=== PATIENT | female | born 1960 | race Caucasian/White ===

== ENCOUNTER 2019-03-09 12:51 | Emergency (ER) | payer OTHER, SELFPAY ==
[2019-03-09 13:22] VITALS: BP 158/92; PULSE 55; RESP 20; TEMP 36.5; O2SAT 100
--- NOTE | 2019-03-09 13:22 | ED.GIBLEED ---
HPI - GI Bleed General Chief complaint: GI Bleed Stated complaint: BLACK STOOL Time Seen by Provider: 03/09/19 13:08 Source: patient and RN notes reviewed Mode of arrival: ambulatory Limitations: no limitations History of Present Illness HPI Narrative: Pt is a 59 y/o female who presents to the ED with c/o dark black stools starting earlier today. She notes that she fell and injured her rt ribs 2 days ago. Pt states that she has had bruising and pain on her rt lower ribs ever since the fall. She notes that earlier today she noticed her stools were dark black in color. Pt states that she was seen at an urgent care facility for her symptoms early this afternoon, and notes that she was advised to come to the ED due to a possible GI bleed. She currently reports a decreased appetite, but denies any ABD pain or vomiting. Pt notes that she has been taking Aleve for her rib pain. She states that she isn't taking any blood thinners. MD complaint: melena Context: other (recent fall) Associated symptoms: loss of appetite and other (rt lower rib pain; bruising along rt lower ribs) Related Data Home Medications Medication Instructions Recorded Confirmed Vitamin D3 Complete 03/09/19 lisinopril 03/09/19 loratadine mg 03/09/19 multivitamin cap 03/09/19 omeprazole 03/09/19 triamterene-hydrochlorothiazid tablet 03/09/19 Allergies Allergy/AdvReac Type Severity Reaction Status Date / Time latex Allergy Intermediate RASH, Verified 03/09/19 13:19 ITCHING Review of Systems Review of Systems: Narrative: CONSTITUTIONAL: Denies fever, chills, or sweats. Reports decreased appetite. GASTROINTESTINAL: Denies abdominal pain, nausea, vomiting, or diarrhea. Reports dark black stools. GENITOURINARY: Denies dysuria or hematuria. SKIN: Denies rash or itching. Reports bruising across rt lower ribs. MUSCULOSKELETAL: Denies back pain, joint pain, or myalgia. Reports rt lower rib pain. NEUROLOGIC: Denies headache, numbness, or weakness. All systems reviewed & are unremarkable except as noted in HPI and below PMFSH Past Medical History Medical History Anemia Arthritis GERD (gastroesophageal reflux disease) HTN (hypertension) Ovarian cyst Surgical History Surgical History History of right knee joint replacement Hx of appendectomy Hx of cholecystectomy Hx of oophorectomy Hx of tonsillectomy Social History Social History Smoking status: Never smoker Gender identity (if verbalized by the patient): Female Comments PCP is FRANCHESCA Gomez. Exam Narrative: Exam Narrative: GENERAL: Well-appearing, well-nourished, and in no acute distress. HEAD: Normocephalic, atraumatic. EYES: PERRLA and EOMI. ENT: Nares clear, no rhinorrhea or epistaxis. Mucous membranes moist. NECK: Supple. CHEST: Clear to auscultation. No respiratory distress. HEART: Regular rate and rhythm. No murmur heard. Normal peripheral pulses. ABDOMEN: Soft, nontender, nondistended, normal active bowel sounds. : Rectal exam without hemorrhoids. No fissures. No melanotic stool. Guaiac negative. EXTREMITIES: Normal range of motion. No edema. SKIN: Warm, dry, no rash. Ecchymosis on rt anterior chest wall. NEURO: No focal deficits. Alert and oriented. Course Course Emergency Course: Patient presented with concern for GI bleed since taking Aleve for rib fractures. Patient states she has had some darker stools over the past 2 days. No syncope or lightheadedness. No dizziness or vomiting. No bright red blood present. Rectal exam is guaiac negative. Patient with very stable hemoglobin and hematocrit. No orthostatic hypotension or other concerning features at this point. Patient may have had some transient bleeding possibly from the Aleve, but has had no abdominal pain and laboratory work is not consistent with severe GI bleed. Pratik
[2019-03-09 14:04] VITALS: BP 134/87; PULSE 52
[2019-03-09 14:05] VITALS: BP 132/87; PULSE 55
[2019-03-09 14:06] VITALS: BP 130/90; PULSE 60
--- NOTE | 2019-03-09 14:08 | PC.NURSE ---
pt refuses iv start/saline lock at this time. md will be notified
[2019-03-09 14:10] LABS: Basophils Percent Auto 0.4 % (0.2-1.2); Eosinophils Absolute Auto 0.1 K/mm3 (0-0.3); Hemoglobin 15.3 g/dL (12.0-15.0); Immature Granulocyte Absolute 0.01 K/mm3 (0.00-0.031); Immature Granulocyte Percent A 0.2 % (0-0.5); Lymphocytes Absolute Auto 1.48 K/mm3 (0.9-3.2); Lymphocytes Percent Auto 29.6 % (18.3-44.2); Mean Corpuscular Hemoglobin 30.4 pg (26-34); Mean Corpuscular Volume 89.3 fl (80-100); Mean Platelet Volume 9.9 fl (7.4-10.4); Monocytes Absolute Auto 0.4 K/mm3 (0.1-0.6); Monocytes Percent Auto 7.4 % (2.6-8.5); Neutrophils Absolute Auto 3.1 K/mm3 (1.3-6.7); Neutrophils Percent Auto 61.4 % (45.5-73.1); Platelet Count Result 216 k/mm3 (150-375); Red Blood Count 5.04 M/mm3 (4.2-5.4); Red Cell Distribution Width 12.8 % (11.5-14.5)
[2019-03-09 14:21] LABS: Blood Urea Nitrogen 12 mg/dL (7-17); Calcium 9.8 mg/dL (8.4-10.2); Carbon Dioxide 33 mmol/L (22-30); Chloride 93 mmol/L (98-107); Estimated Glomerular Filt Rate > 60; Glucose 104 mg/dL (65-105); Potassium 4.1 mmol/L (3.4-5.0); Sodium 135 mmol/L (137-145)
[2019-03-09 15:05] VITALS: BP 132/92; PULSE 52; RESP 16; O2SAT 100
== END 2019-03-09 15:08 | disposition home or self-care (01) ==
PROVIDERS: Emergency Provider Emergency Medicine; PCP Physician Assistant
DX: R19.5 Other fecal abnormalities (principal); T39.315A Adverse effect of propionic acid derivatives, initial encounter; K21.9 Gastro-esophageal reflux disease without esophagitis; I10 Essential (primary) hypertension; Z86.2 Personal history of diseases of the blood and blood-forming organs and certain disorders involving the immune mechanism; Z96.651 Presence of right artificial knee joint; S22.41XD Multiple fractures of ribs, right side, subsequent encounter for fracture with routine healing; W19.XXXD Unspecified fall, subsequent encounter
CPT/HCPCS: 36415; 80048; 85025; 86850; 86900; 86901; 99283

== ENCOUNTER 2023-02-11 09:04 | Observation (INO) | payer MEDICARE, SELFPAY ==
[2023-02-11] VITALS (19 sets, daily range): BP systolic 114–147; BP diastolic 67–99; PULSE 55–73; RESP 11–20; TEMP 35.8–36.6; O2SAT 95–100; BMI 36.0
--- NOTE | ~2023-02-11 | XR_ITS ---
XR chest 1V portable DATE: 02/11/2023 11:26 INDICATION: Shortness of breath, worsening over the past 2 weeks. History of hypertension. TECHNIQUE: Portable upright AP chest on 02/11/2023 at 1121 hours COMPARISON: None FINDINGS: Normal heart size. There is aortic unfolding. No hilar or mediastinal enlargement. No pulmo nary infiltrate or consolidation, pleural effusion or pulmonary vascular congestion or pneumothorax. Double density in the electrocardiogram may be a hiatal hernia. This is a limited single projection p ortable examination and there are no prior radiographic or CT examinations for comparison. There is degenerative spurring of the thoracic spine. IMPRESSION: No active cardiopulmonary disease Reviewed, dictated and finalized at location [facility] [employer]
--- NOTE | 2023-02-11 11:12 | ECG_ITS ---
Measurements Intervals [place] Rate: 57 P: VT: 0 QRS: 16 QRSD: 100 T: 54 QT: 456 QTc: 445 Interpretive Statements SINUS BRADYCARDIA BORDERLINE AV CONDUCTION DELAY LOW QRS VOLTAGE IN PRECORDIAL LEADS INCOMPLETE RIGHT BUNDLE BRANCH BLOCK BORDERLINE ST-T WAVE ABNORMALITY- INF/HIGH LAT LEADS BASELINE ARTIFACT- I, II, AVR, AVF BORDERLINE ECG NO PREVIOUS ECG AVAILABLE FOR COMPARISON Electronically Signed On 02-11-2023 12:11:04 CASING PULLER by Harinder Jean D.O.
[2023-02-11 11:30] LABS: Basophils Percent Auto 0.6 % (0.2-1.2); Eosinophils Percent Auto 0.7 % (0-4.4); Hematocrit 26.4 % (37.0-47.0); Hemoglobin 7.6 g/dL (12.0-15.0); Immature Granulocyte Absolute 0.01 K/mm3 (0.00-0.031); Immature Granulocyte Percent A 0.2 % (0-0.5); Lymphocytes Absolute Auto 0.75 K/mm3 (0.9-3.2); Mean Corpuscular HGB Conc 28.8 g/dl (32-36); Mean Corpuscular Hemoglobin 26.8 pg (26-34); Mean Platelet Volume 10.1 fl (7.4-10.4); Monocytes Absolute Auto 0.4 K/mm3 (0.1-0.6); Monocytes Percent Auto 6.5 % (2.6-8.5); Neutrophils Absolute Auto 4.2 K/mm3 (1.3-6.7); Platelet Count Result 304 k/mm3 (150-375); Red Blood Count 2.84 M/mm3 (4.2-5.4); White Blood Count 5.4 K/mm3 (4.5-10.0)
[2023-02-11 11:40] LABS: Alanine Aminotransferase 29 U/L (6-35); Albumin Level 4.1 g/dL (3.5-5.1); Alkaline Phosphatase 81 U/L (38-126); Anion Gap 5 mmol/L (8-16); Aspartate Amino Transferase 33 U/L (14-36); Bilirubin,Total 0.3 mg/dL (0.2-1.3); Blood Urea Nitrogen 19 mg/dL (7-17); Calcium 8.9 mg/dL (8.4-10.2); Carbon Dioxide 30 mmol/L (22-30); Chloride 101 mmol/L (98-107); Estimated CRCL calculation 85 ml/min; Estimated Glomerular Filt Rate > 60; Glucose 95 mg/dL (65-110); Potassium 3.5 mmol/L (3.4-5.0); Sodium 136 mmol/L (137-145)
[2023-02-11 11:49] LABS: Hypochromasia 1+ (NORMAL); Platelet Estimate Adequate (Adequate); Schistocytes None Seen (NORMAL)
--- NOTE | 2023-02-11 12:01 | ED.SOB ---
HPI - SOB/Dyspnea General Chief Complaint: Shortness of Breath/Dyspnea <Jeremy Boss APRN - Last Filed: 02/11/23 17:03> Stated Complaint: sob <Jeremy Boss APRN - Last Filed: 02/11/23 17:03> Time Seen by Provider: 02/11/23 11:38 <Jeremy Boss APRN - Last Filed: 02/11/23 17:03> Source: patient <Jeremy Boss APRN - Last Filed: 02/11/23 17:03> Mode of arrival: ambulatory <Jeremy Boss APRN - Last Filed: 02/11/23 17:03> Limitations: no limitations <Jeremy Boss APRN - Last Filed: 02/11/23 17:03> History of Present Illness HPI Narrative: Chelsey is a 62-year-old female patient presenting to the ER today with complaints of shortness of breath over the past 2 weeks. Denies cough or URI symptoms. Reports that she has been increasingly more short of breath with exertion. Does report some dark stools in the past. Denies any abdominal pain. Does have history of GERD. Has had colonoscopies in the past and were normal by Dr. Masters. No hematemesis or vaginal bleeding. Does have history of anemia and hypertension. Patient does not take any blood thinners. <Jeremy Boss APRN - Last Filed: 02/11/23 17:03> Related Data Home Medications: Home Medications Medication Instructions Recorded Confirmed Vitamin D3 Complete 5,000 units PO DAILY 03/09/19 02/11/23 loratadine 10 mg capsule 10 mg PO DAILY 03/09/19 02/11/23 multivitamin 1 cap PO DAILY 03/09/19 02/11/23 triamterene 37.5 1 tablet PO DAILY 03/09/19 02/11/23 mg-hydrochlorothiazide 25 mg tablet Centrum Silver Ultra Women's 1 tablet PO DAILY 02/11/23 02/11/23 ferrous sulfate 325 mg (65 mg 65 mg PO DAILY 02/11/23 02/11/23 iron) tablet magnesium 200 mg tablet 400 mg PO DAILY 02/11/23 02/11/23 omega 4-yme-mss-fish oil 1,200 mg 1 cap PO DAILY 02/11/23 02/11/23 (144 mg-216 mg) capsule (Fish Oil) <Jeremy Boss APRN - Last Filed: 02/11/23 17:03> Allergies/Adverse Reactions: Allergies Allergy/AdvReac Type Severity Reaction Status Date / Time latex Allergy Intermediate RASH, Verified 03/09/19 13:19 ITCHING <Jeremy Boss APRN - Last Filed: 02/11/23 17:03> Review of Systems Review of Systems: Pertinent positives per HPI. Patient denies any fever, chills, rash, headache, visual changes, dizziness, cough,chest pain, palpitations, nausea, vomiting, diarrhea, constipation, abdominal pain, or any urinary issues. <Jeremy Boss APRN - Last Filed: 02/11/23 17:03> [facility] Past Medical History Medical History: Medical History (Updated 02/11/23 @ 21:29 by Lesa Nair PA-C) Anemia Arthritis Gastroesophageal reflux disease Hypertension Ovarian cyst <Jeremy Boss APRN - Last Filed: 02/11/23 17:03> Surgical History Surgical History: Surgical History (Updated 02/11/23 @ 21:25 by Lesa Nair PA-C) History of appendectomy History of cholecystectomy History of right knee joint replacement History of tonsillectomy History of unilateral oophorectomy Large, benign dermoid cyst. <Jeremy Boss APRN - Last Filed: 02/11/23 17:03> Family History Family History: Family History (Updated 02/11/23 @ 21:27 by Lesa Nair PA-C) Grandparent Colon cancer Mother Pancreatic cancer Sibling Oral cancer Father Congestive heart failure COVID <Jeremy Boss APRN - Last Filed: 02/11/23 17:03> Social History Social History: Social History (Updated 02/11/23 @ 21:27 by Lesa Nair PA-C) Social History: Surrogate medical decision maker: Debra Cehrry, friend. Code status: Full code. Smoking status: Never smoker Alcohol intake: current Drinks per week: 4 Substance use: never Do You Feel Safe in your Home?: Yes Lack of Transportation: No Lack of Food: Never True Current Housing: I Have Housing Concerned About Future Housing: No
[2023-02-11 12:05] LABS: Influenza A QL RT-PCR Negative (Negative); Influenza B QL RT-PCR Negative (Negative); RSV RNA, RT-PCR Negative (Negative); SARS-CoV-2 RNA PCR Negative (Negative)
[2023-02-11 12:45] LABS: D Dimer 0.41 ug/mL (<0.48)
[2023-02-11 12:57] LABS: NT Pro B Type Natriuretic Pept 88 pg/mL (19.9-100)
[2023-02-11] MEDS: FAMOTIDINE 20 MG/2 ML VIAL 40 MG IV PUSH (13:33)
[2023-02-11] MEDS: SODIUM CHLORIDE 0.9% IV 1,000 ML 125 ML IV CONT (16:37)
--- NOTE | 2023-02-11 17:19 | WPDGICN ---
Assessment and Plan Assessment and plan (1) Anemia: Qualifiers: Anemia type: unspecified type Qualified Code(s): D64.9 - Anemia, unspecified Code(s): D64.9 - Anemia, unspecified Status: Acute Assessment and Plan: hemoglobin when checked emergency room was 7.6. Four years ago it was 15.3. (2) Melena: Code(s): K92.1 - Melena Status: Acute Assessment and Plan: her stools have been black on and off but actually for several months. (3) Shortness of breath: Code(s): R06.02 - Shortness of breath Status: Acute Assessment and Plan: This began 1 month ago and has gradually gotten worse, particularly over the past 2 weeks Plan EGD and colonoscopy to be done . I will begin bowel prep tomorrow. She was told in the emergency room that she would be getting a blood transfusion. I do not yet see order for that but I will repeat her H&H. GI Consult Note Consult date/time: 02/11/23 17:19 HPI: Chelsey Boyle is a 62 year old female Who presented emergency room today complaining that for the past month she has been very short of breath. This began about a month ago when she noticed difficulty doing her yoga classes and other exercise classes. For the past 2 weeks that has been effort for her to even go up a flight or 2 of stairs. She has had dark stools but this has been going on for least a year so from time to time. She has not seen this anymore lately than in the past. She denies using Pepto-Bismol. She does take iron supplements. Her stools may be very dark 1 day and then brown the next day. She has had loose stools ever since her cholecystectomy 15 years ago. 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 There was also mild reflux esophagitis. A colonoscopy at that time also was rather unremarkable. She denies abdominal pain. She has had no significant chronic heartburn but she does occasionally get heartburn for which she will use Tums. Denies dysphagia. She has had no vomiting or frequent nausea. Her weight is stable. She uses an occasional ibuprofen but not regularly. Review of Systems Review of Systems: All systems reviewed & are unremarkable except as noted in HPI and below PMFSH Past Medical History Medical History (Updated 02/11/23 @ 17:22 by Aneudy Resendiz MD) Anemia Arthritis GERD (gastroesophageal reflux disease) HTN (hypertension) Ovarian cyst Surgical History Surgical History History of right knee joint replacement Hx of appendectomy Hx of cholecystectomy Hx of oophorectomy Hx of tonsillectomy Social History Social History Smoking status: Never smoker Alcohol intake: current Drinks per week: 4 Substance use: never Do You Feel Safe in your Home?: Yes Lack of Transportation: No Lack of Food: Never True Current Housing: I Have Housing Concerned About Future Housing: No Difficulty Paying Gas/Electric Bills: No Difficulty Paying for Meds: No Currently Unemployed: No Education: Associate Degree Difficulty w/ Childcare or Family Care: No Gender identity (if verbalized by the patient): Female Spiritual care concerns: No Meds Home Medications and Allergies Home Medications Medication Instructions Recorded Confirmed Type Vitamin D3 Complete 5,000 units PO DAILY 03/09/19 02/11/23 History loratadine 10 mg capsule 10 mg PO DAILY 03/09/19 02/11/23 History multivitamin 1 cap PO DAILY 03/09/19 02/11/23 History triamterene 37.5 1 tablet PO DAILY 03/09/19 02/11/23 History mg-hydrochlorothiazide 25 mg tablet Centrum Silver Ultra Women's 1 tablet PO DAILY 02/11/23 02/11/23 History ferrous sulfate 325 mg (65 mg 65 mg PO DAILY 02/11/23 02/11/23 History iron) tablet magnesium 200 mg tablet 400 mg PO DAILY 02/11
[2023-02-11 17:34] LABS: Hematocrit 26.9 % (37.0-47.0); Hemoglobin 7.8 g/dL (12.0-15.0)
--- NOTE | 2023-02-11 19:20 | PM.IMHP ---
H&P: HPI History of Present Illness Date/Time: 02/11/23 19:00 Chief Complaint: Shortness of breath. Narrative: This is a very pleasant 62-year-old female with hypertension, gastroesophageal reflux disease, and anemia who presented to the emergency department for evaluation of shortness of breath. The patient provides the following history. The last couple of weeks she has noticed that she is getting short of breath with everyday activities which is very unusual for her. She feels fatigued, tires easily, and has occasional feelings of lightheadedness and racing heart. Her vital signs were stable on presentation to the ED. Hemoglobin today was 7.6 which is down significantly from 15.3 on labs obtained 4 years ago. With further discussion she reports being started on iron a couple of years ago after she was unable to donate blood due to low iron. On occasion she does noticed dark stools but that is infrequent and she has always attributed that to the iron supplementation. She has occasional heartburn for which she will take Tums but not very often. In fact she stopped taking omeprazole daily as her symptoms had improved. She will take an Aleve sparingly. No significant caffeine or alcohol use. She has not had epigastric abdominal pain, bloating, belching, nausea, or vomiting. Stool was Hemoccult positive in the ED and she is being admitted in this setting for close monitoring and GI consultation. Last colonoscopy was approximately 4 years ago and was reportedly normal. She has no history of hemorrhoids, diverticulosis, or colon polyps to her knowledge. Maternal grandmother had colon cancer and at the age of 45. Review of Systems Review of Systems: Twelve systems were reviewed and are negative except for as per HPI. [facility] Past Medical History Medical History (Updated 02/11/23 @ 21:29 by Lesa Nair PA-C) Anemia Arthritis Gastroesophageal reflux disease Hypertension Ovarian cyst Surgical History Surgical History (Updated 02/11/23 @ 21:25 by Lesa Nair PA-C) History of appendectomy History of cholecystectomy History of right knee joint replacement History of tonsillectomy History of unilateral oophorectomy Large, benign dermoid cyst. Family History Family History (Updated 02/11/23 @ 21:27 by Lesa Nair PA-C) Grandparent Colon cancer Mother Pancreatic cancer Sibling Oral cancer Father Congestive heart failure COVID Social History Social History (Updated 02/11/23 @ 21:27 by Lesa Nair PA-C) Social History: Surrogate medical decision maker: Debra Garcialary, friend. Code status: Full code. Smoking status: Never smoker Alcohol intake: current Drinks per week: 4 Substance use: never Do You Feel Safe in your Home?: Yes Lack of Transportation: No Lack of Food: Never True Current Housing: I Have Housing Concerned About Future Housing: No Difficulty Paying Gas/Electric Bills: No Difficulty Paying for Meds: No Currently Unemployed: No Education: Associate Degree Difficulty w/ Childcare or Family Care: No Additional living arrangements comments: Lives alone in [place]. 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 Spiritual care concerns: No Meds Home Medications and Allergies Home Medications Medication Instructions Recorded Confirmed Type Vitamin D3 Complete 5,000 units PO DAILY 03/09/19 02/11/23 History loratadine 10 mg capsule 10 mg PO DAILY 03/09/19 02/11/23 History multivitamin 1 cap PO DAILY 03/09/19 02/11/23 History triamterene 37.5 1 tablet PO DAILY 03/09/19 02/11/23 History mg-hydrochlorothiazide 25 mg tablet Centrum Silver Ultra Women's 1 tablet PO DAILY 02/11/23 02/11/23 History ferrous sulfate 325 mg (65 mg 65 mg PO DAILY 02/11/23 02/11/23 History iron) tablet magnesium 200 mg tablet 400 mg PO DAILY 02/11/23 02/11/23
[2023-02-12 00:01] LABS: Hematocrit 24.7 % (37.0-47.0); Hemoglobin 7.1 g/dL (12.0-15.0)
[2023-02-12 01:40] LABS: Folic Acid > 20.0 ng/mL (2.76->20)
[2023-02-12 01:51] LABS: Iron 21 ug/dL (37-170)
[2023-02-12 02:28] LABS: Percent Iron Saturation 5 % (20-50)
[2023-02-12 04:21] VITALS: BP 118/69; PULSE 53; RESP 20; TEMP 36; O2SAT 96
[2023-02-12 07:25] LABS: Hematocrit 25.5 % (37.0-47.0); Hemoglobin 7.4 g/dL (12.0-15.0); Mean Corpuscular Hemoglobin 26.6 pg (26-34); Mean Corpuscular Volume 91.7 fl (80-100); Mean Platelet Volume 9.1 fl (7.4-10.4); Platelet Count Result 258 k/mm3 (150-375); Red Blood Count 2.78 M/mm3 (4.2-5.4); White Blood Count 3.8 K/mm3 (4.5-10.0)
[2023-02-12 07:44] LABS: Anion Gap 7 mmol/L (8-16); Blood Urea Nitrogen 13 mg/dL (7-17); Calcium 8.7 mg/dL (8.4-10.2); Carbon Dioxide 29 mmol/L (22-30); Chloride 105 mmol/L (98-107); Estimated CRCL calculation 76 ml/min; Estimated Glomerular Filt Rate > 60; Glucose 90 mg/dL (65-110); Potassium 3.7 mmol/L (3.4-5.0); Sodium 141 mmol/L (137-145)
[2023-02-12 08:36] LABS: IFOB Positive Control Positive; Immunochemical Fecal Occult Bl Negative (N)
[2023-02-12] MEDS: PANTOPRAZOLE 40 MG TABLET PO (09:13)
[2023-02-12] MEDS: TRIAMTERENE 37.5 MG/HCTZ 25 MG (MAXZIDE) TABLET 1 TAB PO (09:13)
[2023-02-12] MEDS: FERROUS SULFATE 325 MG TABLET DR PO (09:13)
[2023-02-12] MEDS: IRON SUCROSE COMPLEX 100 MG in SODIUM CHLORIDE 0.9% IV 50 ML 220 MG IVPB (09:15)
[2023-02-12 10:12] LABS: Immature Reticulocyte Fraction 32.5 % (3.0-15.9); Reticulocyte Hemoglobin Conten 22.2 pg (28.2-35.7); Reticulocyte Percent 6.58 % (0.7-4.3); Reticulocytes Absolute 0.18 M/mm3 (0.02-0.1)
[2023-02-12 14:00] VITALS: BP 112/63; PULSE 57; RESP 18; TEMP 36.3; O2SAT 98
--- NOTE | 2023-02-12 14:28 | PM.IMPN ---
Progress Note: A&P Assessment and Plan (1) Symptomatic anemia: Code(s): D64.9 - Anemia, unspecified Status: Acute Assessment and Plan: hemoglobin hematocrit of 7.8 and 26.9 on admission 7.4/25.5 this am Iron studies: 21, 5% sat, ferritin 10.4 rectic count: abs - 0.18, 6.58%, retic hem content 22.2 IV Venofer given today, continue x4 doses consider transfusion if continues to drop GI plan for colonoscopy and EGD tomorrow (2) Heme positive stool: Code(s): R19.5 - Other fecal abnormalities Status: Acute Assessment and Plan: occult stool was negative this am GI plan for colonoscopy and EGD tomorrow (3) Hypertension: Code(s): I10 - Essential (primary) hypertension Status: Chronic Assessment and Plan: continue home regimen (4) Gastroesophageal reflux disease: Code(s): K21.9 - Gastro-esophageal reflux disease without esophagitis Status: Chronic Assessment and Plan: continue protonix GI plan for colonoscopy and EGD tomorrow Subjective Date/time seen: 02/12/23 14:28 Interval history: Patient is doing well this morning, no distress. She reports that her stools have been dark, but has been on iron supplementation orally for her known deficiency. She denies any source of bleeding, her occult stool was negative this morning. Labs remained stable from overnight at 7.4/25.5. Iron studies are low, will give IV Venofer. GI following and planning for colonoscopy with EGD tomorrow. CXR negative, denies any SOB, cough, viral symptoms, decreased appetite. He only complaint is decreased tolerance for activity as she is normally active without issue. Review of Systems Review of Systems: All systems reviewed & are unremarkable except as noted in HPI and below Exam Narrative: General: Well-developed female sitting up in bed in no acute distress. HEENT: Normocephalic, atraumatic. PERRL, EOMI. Neck: Supple. Respiratory: Lungs are clear to auscultation bilaterally. Cardiovascular: RRR with S1-S2. Gastrointestinal: Abdomen is soft, nontender, and nondistended with positive bowel sounds. Skin: Warm and dry. Extremities: No cyanosis, clubbing, or edema. Radial and pedal pulses intact. Neurological: A&O x3. Cranial nerves 2-12 are grossly intact. No gross focal deficits to casual conversation. Psychiatric: Pleasant and cooperative with normal mood and affect. Judgment and insight intact. Objective Data Vital Signs Vital Signs: Vital Signs - 24 hr 02/11/23 14:30 02/11/23 14:32 02/11/23 14:45 Temperature Pulse Rate 66 63 58 L Respiratory Rate 13 13 11 L Blood Pressure Pulse Oximetry 100 97 Oxygen Delivery 02/11/23 15:05 02/11/23 16:10 02/11/23 16:42 Temperature 97.3 F L Pulse Rate 62 55 L Respiratory Rate 20 16 Blood Pressure 145/92 H 139/85 Pulse Oximetry 95 100 Oxygen Delivery Room Air 02/11/23 20:42 02/11/23 20:00 02/12/23 04:21 Temperature 96.5 F L 96.8 F L Pulse Rate 61 65 53 L Respiratory Rate 20 18 20 Blood Pressure 136/67 118/69 Pulse Oximetry 100 98 96 Oxygen Delivery Room Air 02/12/23 09:20 Temperature Pulse Rate Respiratory Rate Blood Pressure Pulse Oximetry Oxygen Delivery Room Air Intake/Output Intake/Output: Intake & Output 02/09/23 02/10/23 02/11/23 02/12/23 23:59 23:59 23:59 23:59 Intake Total 740 1020 Output Total 600 Balance 740 420 Meds/Results Medications: Active Medications Generic Name Dose Route Start Last Admin Trade Name Freq PRN Reason Stop Dose Admin Bisacodyl 10 mg 02/12/23 15:00 Bisacodyl 5 Mg Tablet Ec PO 02/12/23 21:01 1500,2100 DERICK Ferrous Sulfate 325 mg 02/12/23 09:00 02/12/23 09:13 Ferrous Sulfate [address] PO 03/14/23 08:59 325 mg DAILY DERICK Administration Iron Sucrose 100 mg/ Sodium 55 mls @ 220 mls/hr 02/12/23 09:00 02/12/23 09:15 Chloride IVPB 02/15/23 09:01 220 mls/hr
[2023-02-12] MEDS: BISACODYL 5 MG TABLET EC 10 MG PO ×2 (15:01→20:18)
[2023-02-12] MEDS: polyethylene glycoL 3350 238 GM BOTTLE PO (15:02)
[2023-02-12 21:29] VITALS: BP 117/87; PULSE 57; RESP 20; TEMP 36.5; O2SAT 100
[2023-02-13] MEDS: MAGNESIUM CITRATE 300 ML BTL 180 ML PO (05:11)
[2023-02-13 06:00] VITALS: BP 100/58; PULSE 59; RESP 20; TEMP 36.1; O2SAT 98
[2023-02-13 06:44] LABS: Hematocrit 27.4 % (37.0-47.0); Mean Corpuscular HGB Conc 29.2 g/dl (32-36); Mean Corpuscular Hemoglobin 26.7 pg (26-34); Mean Corpuscular Volume 91.3 fl (80-100); Mean Platelet Volume 9.8 fl (7.4-10.4); Platelet Count Result 284 k/mm3 (150-375); Red Cell Distribution Width 13.7 % (11.5-14.5); White Blood Count 4.1 K/mm3 (4.5-10.0)
[2023-02-13 06:56] LABS: Anion Gap 8 mmol/L (8-16); Blood Urea Nitrogen 10 mg/dL (7-17); Calcium 9.2 mg/dL (8.4-10.2); Carbon Dioxide 27 mmol/L (22-30); Chloride 105 mmol/L (98-107); Estimated CRCL calculation 76 ml/min; Estimated Glomerular Filt Rate > 60; Glucose 97 mg/dL (65-110); Potassium 3.4 mmol/L (3.4-5.0); Sodium 140 mmol/L (137-145)
[2023-02-13] MEDS: IRON SUCROSE COMPLEX 100 MG in SODIUM CHLORIDE 0.9% IV 50 ML 220 MG IVPB (08:42)
[2023-02-13] MEDS: PANTOPRAZOLE 40 MG TABLET PO (09:03)
[2023-02-13 13:55] VITALS: BP 128/69; PULSE 61; RESP 18; TEMP 36.3; O2SAT 100
[2023-02-13] MEDS: LACTATED RINGERS 1,000 ML 150 ML IV CONT (14:01)
--- NOTE | 2023-02-13 14:39 | WPDANESEPPF ---
Anes - Initial Pre Proc Eval Procedure: Operation Date: 02/13/23 10:00 Proposed Procedures p Esophagogastroduodenoscopy & Colonoscopy - Aneudy Resendiz MD Date/Time: 02/13/23 14:39 Surgeon: Chico Cunningham MD Pre Op Diagnosis: GI Bleed/anemia Patient Data Age: 62 Gender: F Height: 1.78 m Weight: 114 kg Last Vital Signs Temp 97.4 F L 02/13/23 13:55 Pulse 61 02/13/23 13:55 Resp 18 02/13/23 13:55 BP 128/69 02/13/23 13:55 Pulse Ox 100 02/13/23 13:55 O2 Del Method Room Air 02/13/23 13:55 Allergies Allergy/AdvReac Type Severity Reaction Status Date / Time latex Allergy Intermediate RASH, Verified 03/09/19 13:19 ITCHING Home Medications Medication Instructions Recorded Confirmed Type Vitamin D3 Complete 5,000 units PO DAILY 03/09/19 02/11/23 History loratadine 10 mg capsule 10 mg PO DAILY 03/09/19 02/11/23 History multivitamin 1 cap PO DAILY 03/09/19 02/11/23 History triamterene 37.5 1 tablet PO DAILY 03/09/19 02/11/23 History mg-hydrochlorothiazide 25 mg tablet Centrum Silver Ultra Women's 1 tablet PO DAILY 02/11/23 02/11/23 History ferrous sulfate 325 mg (65 mg 65 mg PO DAILY 02/11/23 02/11/23 History iron) tablet magnesium 200 mg tablet 400 mg PO DAILY 02/11/23 02/11/23 History omega 6-inw-tpt-fish oil 1,200 mg 1 cap PO DAILY 02/11/23 02/11/23 History (144 mg-216 mg) capsule (Fish Oil) Laboratory Tests 02/13/23 06:23 WBC 4.1 L K/mm3 (4.5-10.0) RBC 3.00 L M/mm3 (4.2-5.4) Hgb 8.0 L g/dL (12.0-15.0) Hct 27.4 L % (37.0-47.0) MCV 91.3 fl (80-100) MCH 26.7 pg (26-34) MCHC 29.2 L g/dl (32-36) RDW 13.7 % (11.5-14.5) Plt Count 284 k/mm3 (150-375) MPV 9.8 fl (7.4-10.4) Sodium 140 mmol/L (137-145) Potassium 3.4 mmol/L (3.4-5.0) Chloride 105 mmol/L (98-107) Carbon Dioxide 27 mmol/L (22-30) Anion Gap 8 mmol/L (8-16) BUN 10 mg/dL (7-17) Creatinine 0.90 mg/dL (0.7-1.0) Estim Creat Clear Calc 76 ml/min Estimated GFR > 60 (59 - ) Glucose 97 mg/dL (65-110) Calcium 9.2 mg/dL (8.4-10.2) Patient hx anesthesia problems: none Family hx anesthesia problems: none Results Review: All pre-operative results and documents have been reviewed as part of the pre-operative evaluation. [facility] Past Medical History Medical History (Updated 02/12/23 @ 14:33 by Tayla Redmond APRN) Anemia Arthritis Gastroesophageal reflux disease Hypertension Ovarian cyst Surgical History Surgical History (Updated 02/11/23 @ 21:25 by Lesa Nair PA-C) History of appendectomy History of cholecystectomy History of right knee joint replacement History of tonsillectomy History of unilateral oophorectomy Large, benign dermoid cyst. Family History Family History (Updated 02/11/23 @ 21:27 by Lesa Nair PA-C) Grandparent Colon cancer Mother Pancreatic cancer Sibling Oral cancer Father Congestive heart failure COVID Social History Social History (Updated 02/11/23 @ 21:27 by Lesa Nair PA-C) Social History: Surrogate medical decision maker: Debra Cherry, friend. Code status: Full code. Smoking status: Never smoker Alcohol intake: current Drinks per week: 4 Substance use: never Do You Feel Safe in your Home?: Yes Lack of Transportation: No Lack of Food: Never True Current Housing: I Have Housing Concerned About Future Housing: No Difficulty Paying Gas/Electric Bills: No Difficulty Paying for Meds: No Currently Unemployed: No Education: Associate Degree Difficulty w/ Childcare or Family Care: No Additional living arrangements comments: Lives alone in [place]. 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 Spiritual care concerns: No Anes - Eval Final PreProcedure Day of Procedure 0
--- NOTE | 2023-02-13 15:16 | SUR.OPER ---
EGD: Start 15:08, End 15:10 Colonoscopy: Start 15:16, End 15:26
[2023-02-13 15:30] VITALS: BP 102/58; PULSE 55; RESP 15; O2SAT 100
[2023-02-13 15:40] VITALS: BP 111/65; PULSE 55; RESP 16; O2SAT 100
[2023-02-13 15:49] VITALS: BP 133/74; PULSE 59; RESP 19; O2SAT 99
[2023-02-13 16:20] VITALS: BP 144/69; PULSE 56; RESP 20; TEMP 36.7; O2SAT 100
[2023-02-13] MEDS: FERROUS SULFATE 325 MG TABLET DR PO (16:59)
[2023-02-13] MEDS: TRIAMTERENE 37.5 MG/HCTZ 25 MG (MAXZIDE) TABLET 1 TAB PO (17:00)
--- NOTE | 2023-02-13 17:31 | PM.DS ---
DS: Admitting Diagnosis Discharge Date 02/13/23 Admitting Diagnosis Symptomatic anemia Occult positive stool Hypertension GERD DS: Discharge Diagnosis Discharge Diagnosis (1) Symptomatic anemia: Code(s): D64.9 - Anemia, unspecified Status: Acute (2) Heme positive stool: Code(s): R19.5 - Other fecal abnormalities Status: Acute (3) Hypertension: Code(s): I10 - Essential (primary) hypertension Status: Chronic (4) Gastroesophageal reflux disease: Code(s): K21.9 - Gastro-esophageal reflux disease without esophagitis Status: Chronic DS: Summary Hospital Course Reason for hospitalization: Symptomatic anemia Occult positive stool Hypertension GERD Hospital Course: This is a 62-year-old female who presented to the hospital on 02/11/2023 for evaluation of shortness of breath. Workup in the hospital included a chest x-ray which was normal. EKG was performed which showed sinus bradycardia with a rate of 57, QTC prolonged, incomplete right bundle-branch block. Labs revealed a low white blood cell count of 3.8, hemoglobin 7.6, hematocrit 26.4, red blood cells 2.84, platelet count was fine at 304, absolute retake count 0.18, % retake 6.58, immature retic fraction 32.5, retake hemoglobin content 22.2, D-dimer was 0.41, BUN was 19, iron was low at 21, TI BC 424, ferritin was 10.4, liver enzymes were normal, vitamin B12 was 896, folate greater than 20, TSH was 2.04. She was occult blood negative, respiratory panel was negative for influenza, RSV, COVID. GI was consulted. Patient was taken for an EGD. A colonoscopy today with GI services. EGD shown that she has a hiatal hernia and a biopsy was performed sent to cytology. and colonoscopy showed that she has diverticulosis without any diverticulitis or active bleed. Dr. Resendiz recommends that she see a auto mechanics instructor on an outpatient basis as her CBC is showing a low white count, a low red blood cell count, a low hemoglobin, and a low hematocrit. She will need additional workup. On examination today patient is alert oriented x3, sitting up in the bed. She denies any fever, chills, nausea, vomiting, diarrhea, abdominal pain, chest pain. She still reports shortness of breath with exertion however this could be secondary to her anemia. Labs today showed a white blood cell count of 4.1, red blood cell count of 3.0, hemoglobin was 8.0, hematocrit 27.4, platelet count was 284, BMP was normal. Patient is stable for discharge at this time. She will need to follow up with Dr. Deluca, hematology in 2 weeks and also follow up with her primary care physician in 1 week. Final diagnosis: Symptomatic Anemia, GERD, hiatal hernia, diverticulosis Status at Discharge Cognitive/behavioral status at discharge: Alert oriented x3 Functional status at discharge: independent ambulation Overall status at discharge: patient is progressing back to baseline Time Spent with Patient Time attestation: Total time spent providing and/or coordinating discharge services: Time spent: Greater than 30 minutes Exam Narrative: General: In no acute distress, well nourished Head: atraumatic, no encephalopathy Eyes: EOMI, PERRLA, sclera clear ENT: moist mucous membranes, nasal passages clear Neck: supple, no JVD, no adenopathy, trachea midline Cardiac: Normal S1 and S2. No murmur, gallops or friction rubs, peripheral pulses intact. Respiratory: Lungs clear to auscultation, no adventitious lung sounds Gastrointestinal: soft, non-distended, non-tender, normoactive bowel sounds. She is passing gas : voiding without difficulty. Extremities: moves all extremities well, no edema, good ROM, strength 5/5 Skin: clean, dry, intact. No wounds or lesions. Neuro: Alert and oriented x4, cranial nerves intact, no neuro deficits. Psych: normal mood, normal affect, interactive DS: Data Data Completed and Pending Completed studies during hospitalization: Chest x-ray Pending studies at discha
== END 2023-02-13 18:33 | disposition home or self-care (01) ==
LOC: ANHED 14:04 → ANH2MED 15:35
PROVIDERS: Emergency Medicine; Internal Medicine Gastroenterology; Nurse Practitioner; Physician Assistant; Admitting Provider Internal Medicine; Emergency Provider Nurse Practitioner Family; PCP Physician Assistant; Visit Provider Hospitalist
PROC: 0DJ08ZZ Inspection of Upper Intestinal Tract, Via Natural or Artificial Opening Endoscopic (ICD-10-PCS; CPT 43235; principal; 2023-02-13 10:00)
DX: K44.9 Diaphragmatic hernia without obstruction or gangrene (principal); K21.00 Gastro-esophageal reflux disease with esophagitis, without bleeding; K57.30 Diverticulosis of large intestine without perforation or abscess without bleeding; D64.9 Anemia, unspecified; R94.31 Abnormal electrocardiogram [ECG] [EKG]; R06.02 Shortness of breath; Z20.822 Contact with and (suspected) exposure to COVID-19; I10 Essential (primary) hypertension; Z79.899 Other long term (current) drug therapy; F10.90 Alcohol use, unspecified, uncomplicated
CPT/HCPCS: 43239; 45378; 36415; 71045; 80048; 80053; 82274; 82607; 82728; 82746; 83540; 83550; 83880; 84443; 85014; 85018; 85025; 85027; 85046; 85380; 86850; 86900; 86901; 87637; 88305; 93005; 96374; 96375; 96376; 99285; A9270; G0378; J1756; J2704; J7030; J7120

== ENCOUNTER 2023-02-19 11:43 | Outpatient (CLI) | payer MEDICARE, SELFPAY ==
[2023-02-19 12:11] LABS: Eosinophils Absolute Auto 0.1 K/mm3 (0-0.3); Eosinophils Percent Auto 1.9 % (0-4.4); Hematocrit 28.7 % (37.0-47.0); Hemoglobin 8.5 g/dL (12.0-15.0); Immature Granulocyte Absolute 0.01 K/mm3 (0.00-0.031); Immature Granulocyte Percent A 0.2 % (0-0.5); Immature Reticulocyte Fraction 29.2 % (3.0-15.9); Lymphocytes Percent Auto 26.3 % (18.3-44.2); Mean Corpuscular HGB Conc 29.6 g/dl (32-36); Mean Corpuscular Hemoglobin 26.9 pg (26-34); Mean Corpuscular Volume 90.8 fl (80-100); Mean Platelet Volume 9.6 fl (7.4-10.4); Monocytes Absolute Auto 0.4 K/mm3 (0.1-0.6); Monocytes Percent Auto 9.5 % (2.6-8.5); Neutrophils Absolute Auto 2.6 K/mm3 (1.3-6.7); Neutrophils Percent Auto 61.1 % (45.5-73.1); Platelet Count Result 271 k/mm3 (150-375); Red Blood Count 3.16 M/mm3 (4.2-5.4); Red Cell Distribution Width 14.2 % (11.5-14.5); Reticulocyte Hemoglobin Conten 21.4 pg (28.2-35.7); Reticulocytes Absolute 0.16 M/mm3 (0.02-0.1); White Blood Count 4.2 K/mm3 (4.5-10.0)
[2023-02-19 12:18] LABS: Anisocytosis 1+ (NORMAL); Hypochromasia 1+ (NORMAL); Platelet Estimate Adequate (Adequate); Schistocytes None Seen (NORMAL)
[2023-02-19 16:35] LABS: Iron 21 ug/dL (37-170)
[2023-02-19 16:36] LABS: Lactate Dehydrogenase 186 U/L (120-246)
[2023-02-19 16:44] LABS: Percent Iron Saturation 5 % (20-50)
[2023-02-19 17:50] LABS: Folic Acid > 20.0 ng/mL (2.76->20)
[2023-02-22 17:21] LABS: Methylmalonic Acid 111 nmol/L (87-318)
[2023-02-22 20:13] LABS: Haptoglobin 195 mg/dL (43-212)
== END 2023-02-19 11:44 | disposition home or self-care (01) ==
LOC: ANHLAB 11:46
PROVIDERS: Nurse Practitioner Family; PCP Physician Assistant; Visit Provider Internal Medicine Hematology & Oncology
DX: D62 Acute posthemorrhagic anemia (principal); D50.9 Iron deficiency anemia, unspecified; D59.9 Acquired hemolytic anemia, unspecified
CPT/HCPCS: 36415; 82607; 82728; 82746; 83010; 83540; 83550; 83615; 83921; 84238; 85025; 85046; 86880

== ENCOUNTER 2023-08-26 08:14 | Outpatient (CLI) | payer MEDICARE, SELFPAY ==
--- NOTE | ~2023-08-26 | US_ITS ---
COMPLETE ABDOMINAL ULTRASOUND Ordering provider: Tuyet Gomez, BLESSING History: . Family hx of malignant neoplasmof digestive organs . Comparison: None. FINDINGS: LIVER: Normal size and increased echotexture suggestive of fat infiltration. No focal hepatic lesions or perihepatic fluid collections are identified. GALLBLADDER: Surgically removed. BILIARY DUCTS: No evidence for intra or extrahepatic biliary dilation. Common bile duct measures 7 mm in diameter which is within normal limits. PANCREAS: Normal echotexture and size. SPLEEN: Normal size, echotexture and contour and measures 10.7 cm in length. KIDNEYS: Right measures 11x 4.1x 4.4 cm in length and the left 12x 5.5x 6.6 cm in length. There is n o evidence for hydronephrosis, solid renal mass, renal calculi or perinephric fluid collections. No r enal cysts. UPPER ABDOMINAL AORTA: Normal in caliber. IVC: Patent. FREE FLUID: None. IMPRESSION: Fat infiltration of the liver. Otherwise, Unremarkable complete ultrasound of the abdomen. Reviewed, dictated and finalized at location A. IMPRESSION: Fat infiltration of the liver. Otherwise, Unremarkable complete ultrasound of t he abdomen.
== END 2023-08-26 08:15 ==
LOC: MICIMG 08:14
PROVIDERS: PCP Physician Assistant; Visit Provider Physician Assistant
DX: K76.0 Fatty (change of) liver, not elsewhere classified (principal); Z80.0 Family history of malignant neoplasm of digestive organs
CPT/HCPCS: 76700

== ENCOUNTER 2024-03-16 12:18 | Outpatient (CLI) | payer MEDICARE, SELFPAY ==
--- NOTE | ~2024-03-16 | DEXA_ITS ---
Bone Density Report Name: JOCELYN SHINE Age: 64 Sex: Female Ethnicity: White Date of : 1960 Indication: postmenopausal; screening for osteoporosis; height loss; inflammatory bowel disease; secondary osteoporosis; Referring Provider: ANGIE KILLIAN Study: Bone densitometry was performed. Exam Date: March 16, 2024 Accession number: [id number] Bone Density: Region BMD T-score Z-score Classification AP Spine(L1-L4) 1.335 2.6 4.4 Normal Femoral Neck (Left) 0.971 1.1 2.7 Normal Total Hip (Left) 1.102 1.3 2.6 Normal Femoral Neck (Right) 0.936 0.8 2.4 Normal Total Hip (Right) 1.098 1.3 2.6 Normal Total Hip Mean 1.100 1.3 2.6 Normal World Health Organization criteria for BMD impression classify patients as: Normal (T-score at or above -1.0), Osteopenia (T-score between -1.0 and -2.5), or Osteoporosis (T-score at or below -2.5). 10-year Fracture Risk: FRAX not reported because: All T-scores for Spine Total, Hip Total, Femoral Neck at or above -1.0 Clinical Information Provided by Patient: Has secondary osteoporosis Has used the following medications: Vitamin D, Calcium Has the following medical conditions: Inflammatory bowel diseases Patient maximum height was 71 Menopause Age: 50 Drinks caffeinated beverages Onset of menses at age 11 Number of children 0 Impression: The patient has normal bone mass. Discussion: LOW RISK OF FRACTURE; BONE DENSITY IS WELL ABOVE THE MINIMUM DESIRABLE LEVEL AND ABOVE AVERAGE FOR AGE AND SEX AT ALL SKELETAL SITES TESTED. This person's bone density is above expected limits for age and sex. This is rarely clinically significant, but should be pursued if there are significant musculoskeletal complaints. The patient should follow a healthful lifestyle (good nutrition with adequate calcium and vitamin D, and appropriate weight-bearing exercise). Follow-Up: Consider repeating this study in 5 years or sooner if there is some new clinical indication. Reported by: EMILIA on 03/16/2024 12:50:00 PM. Reviewed, dictated and finalized at location AValeria VIGIL
--- OUTSIDE RECORDS SUMMARY | 2024-03-16 12:23 | XMS_ITS | Data Portability ---
Author Organization [facility] Address [address] [place] [address] Care Team Providers Care Poultry Hatchery Supervisor Name Role Phone TUYET HYATT Primary Care Provider Unavailab le Assessment No assessment recorded. Plan of Treatment Reminders Order Date Submit Date Provider Last Modified By Organization Details Last Modified Time Details Appointments None recorded. Lab hepatic function panel, serum 2023 024 [facility], [address], [place], [address], 4 12:27:10 BMP, serum or plasma 2023 024 [facility], [address], [place], [address], 4 12:27:26 vitamin B12 + folate, serum or blood 2023 024 [facility], [address], [place], [address], 4 12:27:31 fecal fat, qualitativ e, stool 2023 024 YULI [facility], [address], [place], [address], 4 16:30:08 amylase + lipase, serum 2023 024 [facility], [address], [place], [address], 4 12:26:48 magnesium, serum or plasma 2023 024 Pool[facility], [address], [address], [place], [address], 4 12:26:23 iron + TIBC + ferritin, serum 2023 024 [facility], [address], [address], [place], [address], 4 12:26:04 CBC w/ auto diff 2023 024 [facility], [address], [address], [place], [address], 4 12:27:05 HbA1c (hemoglobi n A1c), blood [facility], [address], [address], [place], [address], 4 09:51:24 lipid panel, serum 2023 024 [facility], [address], [address], [place], [address], 4 09:51:24 hepatic function panel, serum 2023 024 [facility], [address], [address], [place], [address], 4 09:51:24 BMP, serum or plasma 2023 024 [facility], [address], [address], [place], [address], 4 09:51:24 TSH + free T4, serum 2023 024 [facility], [address], [address], [place], [address], 4 09:51:24 Referral metal spray operator referral 2023 024 [facility] Adiel Cote Jr DPM, [address], [address], [place], [address], 4 12:23:[address] referral - Please schedule patient with Haydee Walden NP if option. 2023 024 YULI Koroma MD, [address], [address], [place], [address], 4 14:49:03 Procedures None recorded. Surgeries None recorded. Imaging US, abdomen 2023 [facility], [address], [address], [place], [address], 4 10:08:41 holter monitor 2023 024 [facility], [address] [place] [address] [address] [facility], [facility] [address], [place], [address], 4 12:02:46 Medication Orders Cholestyra mine Light 4 gram oral powder 2023 024 [id number], [address], [place], [place], [id number], 4 17:42:07 Patient TargetsNo targets recorded. Patient InstructionsNo instructions recorded. Reason for Referral Pepper Picker Referral for Bila teral ankle joint pain Referring Physician: Tuyet Hyatt, Internal Medicine, Encounter Date: 08/19/2023 Dehydrogenation Operator Referral for Po stmenopausal state patient is postmenopausal in need of completed well woman exam including pap smear Please schedule patient with Haydee Walden NP if option. Referring Physician: Tuyte Hyatt, Internal Medicine, Encounter Date: 10/15/2023 Results Created Date Observation Date Name Description Value Unit Range Abnormal Flag Note LastModifiedBy Organization Detail LastModifiedTime 08/26/19 24 08/26/2023 US, abdom en No observ ation record ed. [facility] [address], [place], [address], 08/26/2023 19:42:01 10/31/19 24 10/30/2023 elda r monit or No observ ation record ed. [facility] [address], [place], [address], 11/03/2023 14:55:29 11/03/19 24 10/30/2023 elda r monit or No observ ation record ed. [facility] [address], [place], [address], 11/03/2023 13:23:40 02/18/19 25 01/29/2023 MAMMO , scree zully, digit al, bilat eral No observ ation record ed. BARCODE Not Available 2024 17:05:47 Result Notes None recorded. Problems Name Problem SNOMED Code Status Onset Date Resolution Date Notes Provider Name and Address Organization Details Recorded Time Gastroesoph ageal reflux disease 591646025 Active 2023 Jocelin leo, [place] - [facility] 4 16:30:50 Hypothyroid ism 42710390 Active 2023 Jocelin Cruz null, [place] [facility] 4 16:30:56 Long-term drug therapy Active 2023 FRANCHESCA Goodson Attn: Mj cerda,[address], [place], [address], [place] [facility] 4 12:33:05 Bradycardia 90357964 Active 2023 FRANCHESCA Goodson Attn: Mj cerda,[address] [facility], [place], [address], [place] [facility] 4 12:54:59 Family history of malignant neoplasm of pancreas 216204747 Active 2023 FRANCHESCA Goodson Attn: Mj cerda,[address] [facility], [place], [address], [place] [facility] 4 12:55:01 Iron deficiency anemia 94489085 Active 2023 FRANCHESCA Goodson Attn: Mj cerda,[address] [facility], [place], [address], [place] [facility] 4 12:55:02 Bilateral ankle joint pain 3599954206823 9102 Active 2023 FRANCHESCA Goodson Attn: Mj cerda,[address] [facility], [place], [address], [place] [facility] 4 12:55:04 Bilateral foot joint pain 1027728294836 9109 Active 2023 FRANCHESCA Goodson Attn: Anailakia cerda,[address] [facility], [place], [address], [place] [facility] 4 12:55:04 Chronic diarrhea 299973210 Active 2023 FRANCHESCA Goodson Attn: Mj cerda,[address] [facility] [address], [place], [address], [place] [facility] 4 12:56:58 Blood glucose outside reference range 944418180 Active 2023 FRANCHESCA Goodson Attn: Anailakia cerda,[address] [facility], [place], [address], [place] [facility] 4 20:06:36 [facility] 64917272 Active 2023 FRANCHESCA Goodson Attn: Mj cerda,[address] [facility], [place], [address], [place] [facility] 4 20:06:51 Problem Notes None recorded. Procedures Surgical History Date Name Laterality Status Provider Name and Address Organization Details Recorded Time Appendectomy completed Makenzie Bush [place] - [facility] 08/19/2023 16:57:24 Arthroscopic Surgery completed Makenzie Bush MA [facility] 08/19/2023 16:57:31 Joint Replacement completed Makenzie Bush MA [facility] 08/19/2023 16:59:11 Knee Surgery completed Makenzie Bush MA [facility] 08/19/2023 16:59:17 Tonsillectomy completed Makenzie Bush MA [facility] 08/19/2023 16:59:25 cholecystectomy completed FRANCHESCA Goodson Attn: Accounting,[address], [place], [address], [facility] 10/15/2023 14:32:06 Imaging Results Imaging Date Name Status LastModified by Organiz ation Details LastModified Time 08/26/2023 [facility] [address], [place], [address], 08/26/2023 19:42:01 10/30/2023 holter monitor completed [facility] [address], [place], [address], 11/03/2023 14:55:29 10/30/2023 holter monitor completed [facility] [address], [place], [address], 11/03/2023 13:23:40 01/29/2023 MAMMO, screening, digital, bilateral completed BAR[facility] Information not available 02/19/2024 17:05:47 Procedure Notes None recorded. Medical Equipment None Reported. Allergies No known drug allergies Medications Name Sig Start Date Stop Date Status Note LastModified by Organization Details LastModified Time omeprazol e 40 mg capsule,d elayed release one tab po daily 2023 active Not Available Not Available Not Avai lable levothyro xine 88 mcg tablet TAKE 1 TABLET BY MOUTH EVERY DAY active Not Available Not Available No t Available amoxicill in 875 mg tablet TAKE 1 TABLET BY MOUTH TWICE DAILY UNTIL ALL TAKEN 08/18 completed Not Available Not Available Not Available triamtere ne 37.5 mg-hydroc hlorothia zide 25 mg tablet TAKE 1 TABLET BY MOUTH EVERY DAY 2023 active Not Available Not Available Not Avai lable nitrofura ntoin monohydra te/macroc rystals 100 mg capsule TAKE 1 CAPSULE BY MOUTH EVERY 12 HOURS FOR 10 DAYS 08/18 completed Not Available Not Available Not Available ferrous gluconate 324 mg (38 mg iron) tablet TAKE 1 TABLET BY MOUTH DAILY 2024 active Not Available Not Available Not Avai lable Cholestyr amine Light 4 gram oral powder MIX AND DRINK 1 SCOOP IN AN 8OZ GLASS OF LIQUID BY MOUTH EVERY DAY 2023 active Not Available Not Available Not Avai lable semagluti de 0.8mg active HERS program Not Available Not Available Not Available Vitals Date Recorded Body height Respiratory rate Body mass index (BMI) Body weight Oxygen saturation Oxygen saturation in Arterial blood by Pulse oximetry Heart rate Heart rate Systolic blood pressure Diastolic blood pressure Systolic blood pressure Diastolic blood pressure Provider Name and Address Organization Details Last Updated DateTime 4 177.8 cm 20 /min 35.3 kg/m2 247613. 72 g 96 % 96 % 48 /min 50 /min 142 mm[Hg] 78 mm[Hg] 132 mm[Hg] 80 mm[Hg] Makenzie Bush MA [facility] 17:03:21 Date Recorded Systolic blood pressure Diastolic blood pressure Provider Name and Address Organization Details Last Updated DateTime 08/19/2023 132 mm[Hg] 80 mm[Hg] FRANCHESCA Goodson Attn: Accounting,[address] [place], [address], [facility] 08/19/2023 17:41:15 Date Recorded Body height Respiratory rate Body mass index (BMI) Body weight Oxygen saturation Oxygen saturation in Arterial blood by Pulse oximetry Heart rate Systolic blood pressure Diastolic blood pressure Provider Name and Address Organization Details Last Updated DateTime 4 177.8 cm 20 /min 34.3 kg/m2 657429. 86 g 97 % 97 % 56 /min 138 mm[Hg] 90 mm[Hg] Makenzie Bush MA [facility] 14:04:55 Social History Question Answer Notes LastModified by Organizat ion Details LastModified Time Tobacco Smoking Status Never Smoker Makenzie Bush MA [facility], [place] - [facility] 08/19/2023 16:56:25 Do You Have An Advance Directive? Yes Information not available 08/19/2023 What Is Your Level Of Alcohol Consumption? Occasional Information not available 08/19/2023 Are You Blind Or Do You Have Difficulty Seeing? No Contacts Information not available 08/19/2023 What Is Your Level Of Caffeine Consumption? Moderate Tea/spark In Am Information not available 08/19/2023 In The 14 Days Before Symptom Onset, Have You Had Close Contact With A Laboratory-confi rmed COVID-19 While That Case Was Ill? No Information not available 08/19/2023 In The 14 Days Before Symptom Onset, Have You Had Close Contact With A Person Who Is Under Investigation For COVID-19 While That Person Was Ill? No Information not available 08/19/2023 Have You Been To An Area Known To Be High Risk For COVID-19? No Information not available 08/19/2023 Are You Deaf Or Do You Have Serious Difficulty Hearing? No Information not available 08/19/2023 What Type Of Diet Are You Following? REGULAR Information not available 08/19/2023 Are There Any Guns Present In Your Home? No Information not available 08/19/2023 What Was The Date Of Your Most Recent Tobacco Screening? 10/15/2023 Information not available 10/15/2023 Do You Use Your Seat Belt Or Car Seat Routinely? Yes Information not available 08/19/2023 Do You Have Smoke And Carbon Monoxide Detectors In Your Home? Yes Information not available 08/19/2023 Do You Feel Stressed (tense, Restless, Nervous, Or Anxious, Or Unable To Sleep At Night)? [id number] Information not available 08/19/2023 Do You Use Any Illicit Or Recreational Drugs? No Information not available 08/19/2023 Do You Use Sunscreen Routinely? Yes Information not available 08/19/2023 Has Tobacco Cessation Counseling Been Provided? Yes Information not available 08/19/2023 On What Date Was Tobacco Cessation Counseling Provided? 10/15/2023 Information not available 10/15/2023 Do You Or Have You Ever Used Any Other Forms Of Tobacco Or Nicotine? No Information not available 08/19/2023 Sex: Female Functional Status Question Answer Note LastModified by Organization D etails LastModified Time Are you able to care for yourself? Yes Information not available 08/19/2023 What is your exercise level? Moderate Information not available 08/19/2023 Mental Status None recorded. Family History Relationship Description Onset Age of this Age Resolved Age Notes LastModified by Organization Details LastModified Time Sister Alcohol abuse niece, rehab tcarterma Not available 10/15/2023 14:00:11 Sister Depressive disorder tcarterma Not available 2023 13:59:51 Mother Diabetes mellitus tcarterma Not available 2023 17:00:24 Father Hypertensive disorder tcarterma Not available 2023 17:00:29 Medical History No medical history recorded. Gynecological History Statement/Question Response Menses Monthly N Current Control Method Other Obstetrics History GPAL:G 0 P 0 0 0 0 Immunizations Vaccine Type Date Status Note Provider Nam e and Address Organization Details Recorded Time Influenza, MDCK, quadrivalent, PF 12/04/2022 completed Makenzie [place], [place] [facility] 11/26/2023 16:43:38 zoster recombinant 05/04/2018 completed Makenzie [place] [facility] 11/26/2023 16:43:38 zoster recombinant 07/07/2018 completed Makenzie [place] [facility] 11/26/2023 16:43:38 COVID-19, mRNA, LNP-S, PF, 100 mcg/0.5mL dose or 50 mcg/0.25mL dose 08/23/2021 completed Makenzie [place] [facility] 11/26/2023 16:43:38 COVID-19, mRNA, LNP-S, bivalent, PF, 50 mcg/0.5 mL or 25mcg/0.25 mL dose 08/28/2022 completed Makenzie [place] [facility] 11/26/2023 16:43:38 COVID-19, mRNA, LNP-S, PF, ewa-sucrose, 30 mcg/0.3 mL 07/25/2023 completed Makenzie Bush [place] ahmet, [place] [facility] 11/26/2023 16:43:38 Past Encounters Encounter ID Performer Location Encounter Start Date Encounter Closed Date Diagnosis/Indication Diagnosis SNOMED-CT Code Diagnosis ICD10 Code Diagnosis Note [id number] FRANCHESCA Goodson [facility] [place] [address] [place] [address] 08/19/2023 16:22:25 09/11/2023 15:22:56 Chronic diarrhea 126565054 K52.9 With persistent diarrhea, check a fecal fat test and also trial cholestyra mine powder Family his tory of malignant neoplasm of pancreas 400622500 Z80.0 With family history of pancreatic cancer check ultrasound of the abdomen and amylase and lipase labs Iron defic iency anemia 78579336 D50.9 Patient has finding of mild anemia noted on recent labs. Check updated iron studies and CBC Long-term drug therapy 913945485 Z79.899 Check routine liver function panel, basic metabolic panel and vitamin B12 and folate. Bradycardia 73338804 R00 .1 Patient has underlying bradycardi a today with a rate of 50 beats per minute Bilateral foot joint pain 9221018893 5089892 M79.671 M79.672 Patient will be seeing Podiatry as ordered above for her foot pain. 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 Family his tory of malignant neoplasm of pancreas 649642164 Z80.0 u/s abdomen is clear . Bradycardia 18651640 R00 .1 Patient has underlying bradycardi a today with a rate of 50 beats per minute. Patient has plans for Holter monitor to complete Bilateral ankle joint pain 0847613884 1856976 M25.571 M25.572 as above Bilateral foot joint pain 6749045901 6746450 M79.[address] 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 Patient is having some improvemen t and on a treatment plan Long-term drug therapy 850330792 Z79.899 Routine liver function, metabolic panel and thyroid labs are due Iron defic iency anemia 57329173 D50.9 Iron studies have improved on ferrous gluconate supplement Cholesterol screening 27 7373998 Z13.220 Fasting lipid panel is due Blood gluc ose outside reference range 749755803 R73.09 Patient is due for updated A1c testing as she does have a history of prediabete s Health Concerns Section Related Observation LastModified by Organization Detai ls LastModified Time None Recorded Concern Status LastModified by Organization Details LastModified Time None Recorded Advance Directives Directive Y: Payers Encounter Date Sequence Insurance Name Policy Number Policy Jennings Covered Member ID Jennings Member ID Guarantor Name 08/19/2023 1 [employer] (MEDICARE REPLACEMENT PPO) [id number] [employer] [id number] Chelsey Boyle 10/15/2023 1 [employer] (MEDICARE REPLACEMENT PPO) [id number] [employer] [id number] Chelsey Boyle Notes Date Note Type Note Provider Name and Address Organization Details Recorded Time 08/19/2023 text/html GI issues: onset years ago with gallbladder out, 2007, diarrhea every day since then. Always morning, eat or drink within half hour goes to twice. She has to get up extra early on days she has events, to get this aside. February admitted for anemia, Hemoglobin was very low. Transfused. Discharged. Colonoscopy and EGD, found hiatal hernia and on PPI now. colon was clear. Went on iron supplement.uar y had 3 consecutive iron infusions with dr. Willson and labs in april. All were good and no repeat iron infusion. More labs recent before trip to [place] in July, all were stable.Had UTI before [place] , abx treated it.While traveling, had some constipation, then diarrhea came. right dorsal foot pain, wax and wane; both ankles also hurt and are very painful. she uses voltaren gel daily. while in [place] she averaged 17k steps per day and ankles and feet were so painful. FRANCHESCA Goodson Attn: Accounting,[address], [place], [address], [facility] 09/09/2023 12:57:22 10/15/2023 text/html GI issues: onset years ago with gallbladder out, 2007, diarrhea every day since then. Always morning, eat or drink within half hour goes to twice. She has to get up extra early on days she has events, to get this aside. February admitted for anemia, Hemoglobin was very low. Transfused. Discharged. Colonoscopy and EGD, found hiatal hernia and on PPI now. colon was clear. Went on iron supplement.uar y had 3 consecutive iron infusions with dr. Willson and labs in april. All were good and no repeat iron infusion. More labs recent before trip to [place] in July, all were stable. right dorsal foot pain, wax and wane; both ankles also hurt . She is seeing Dr. Cote of Podiatry and is having some improvement in her right foot pain FRANCHESCA Goodson Attn: Accounting,[address], [place], [address], [facility] 11/08/2023 20:07:44 OBGyn Episode No OBEpisode recorded.
--- OUTSIDE RECORDS SUMMARY | 2024-03-16 12:24 | XMS_ITS | Continuity of Care Document ---
Author Organization [facility] Address [address] [place] [address] Phone Care Team Providers Care Production Support Supervisor Name Role Phone Unavailable Unavailable Unavailable Allergies, Adverse Reactions, Alerts Substance Reaction Status Criticality latex Active No Information Medications Medication Instructions Dosage Effective Dates (start - stop) Status Comments Lisinopril 5 mg tablet Take one tablet by mouth every morning - Active Pt needs ano ther appt before any more refills Triamterene-hydroc hlorothiazid 37.5 mg-25 mg tablet Take one tablet by mouth daily - Active Amlodipine besylate 2.5 mg tablet Take one tablet by mouth every night at bedtime - Active Ranitidine hcl 300 mg tablet Take one tablet by mouth every night at bedtime - Active Zoloft 50 mg tablet Take one tablet by mouth daily - Active Potassium chloride 20 meq tablet er Use as Directed- Take one capsule by mouth only on . - Active Needs to establish with new doctor for more refills Diovan 40mg tablet Take one tablet by mouth daily - Active Vitamin D3 400unit tablet Take one tablet by mouth daily - Active Multiple Vitamin-Minerals Tab Take one tablet by mouth daily - Active Claritin 10 mg Tab Take one tablet by mouth daily - Active Procedures Procedure Date Office Visit Established Office Visit Established Office Visit Established Office Visit Established Office Visit Established Low To Moderate Office Visit Established Low To Moderate Offic/outpt E&m Estab Mod-hi 2 Office Visi Established Minor 3 Offic/outpt E&m Estab Mod-hi 2 13 Office Visit Established Low To Moderate Postop F/u Visit [facility] 3 Offic/outpt E&m Estab Mod-hi 2 12 Injection - Major Joint Injection - Major Joint Offic/outpt E&m Estab Mod-hi 2 12 Postop F/u Visit [facility] 2 Postop F/u Visit [facility] 2 Office Visit Established Low To Moderate Postop F/u Visit [facility] 2 Arthros Knee; W/meniArthros Knee; W/meni sect Arthrosc Knee; AbrasArthrosc Knee; Abras ion A Offic/outpt E&m Estab Mod-hi 2 12 Offic/outpt E&m Estab Mod-hi 2 12 Injection - Major Joint Office Visit New Patient Low To Moderate Office Visit Established Low To Moderate Advance Directives Directive Yes / No Effective Date File Name No Information Encounters Encounter Description Practice Location Reason(s) For Visit Diagnoses Date Provider Providers Copied on Encounter [facility], [address] [place] [address], [facility], tel: [phone] [facility] No Information 7 No Information [facility], [address] [place] [address], [address], tel: [phone] [facility] No Information 7 No Information [facility], [address] [place] [address], [address], tel: [phone] [facility] No Information 7 No Information [facility], [address] [place] [address], [address], tel: [phone] [facility] No Information 7 No Information [facility], [address] [place] [address], [address], [place] tel: [phone] [facility] No Information 6 No Information Office Visit Established [facility], [address] [place] [address], [address], [place] tel: [phone] [facility] Essential (primary) hypertensionOther specified crystal arthropathies, right knee 6 No Information Referring Provider: Delano Anne, [address] [place], [address]. tel:[phone] Office Visit Established [facility], [address] [place] [address], [address], [place] tel: [phone] [facility] Vitamin D deficiency, unspecifiedEssenti al (primary) hypertension 6 No Information Office Visit Established [facility], [address] [place] [address], [address], tel: [phone] [facility] Essential (primary) hypertensionVitami n D deficiency, unspecified 5 No Information Office Visit Established [facility], [address] [place] [address], [address], [place] tel: [phone] [facility] Benign HypertensionAllerg ic Rhinitis NosOsteoarthros Nos-unspec 5 No Information Office Visit Established Low To Moderate [facility], [address] [place] [address], [address], [place] tel: [phone] [facility] Benign HypertensionEdema 4 No Information Office Visit Established Low To Moderate [facility], [address] [place] [address], [address], [place] tel: [phone] [facility] Benign HypertensionJoint Pain-ankle 4 No Information Offic/outpt E&m Estab Mod-hi 2 [facility], [address] [place] [address], [address], [place] tel:[phone] [facility] Dietary counselBenign HypertensionJoint Pain-ankleEdema 4 No Information Office Visi Established Minor [facility], [address] [place] [address], [facility], [place] tel: [phone] [facility] Dermatitis Nos 3 Brianna Kemp. [address], [place], [id number]. tel:[phone] Offic/outpt E&m Estab Mod-hi 2 [facility], [address] [place] [address], [facility], [place] tel: [phone] [facility] Osteoarthros Nos-l/legTear Med Menisc Knee-cur 3 Lane Bharat. [address] [place] [address], [facility]. tel:[phone] Office Visit Established Low To Moderate [facility], [address] [place] [address], [facility], [place] tel: [phone] [facility] Dietary counselBenign HypertensionOsteoa rthros Nos-unspec 3 No Information [facility], [address] [place] [address], [facility], [place] tel: [phone] [facility] Osteoarthros Nos-l/legTear Med Menisc Knee-cur [address] Bharat. [address] [place] [address], [facility]. tel:[phone] Offic/outpt E&m Estab Mod-hi 2 [facility], [address] [place] [address], [address], [place] tel: [phone] [facility] Osteoarthros Nos-l/legTear Med Menisc Knee-cur [address] Bharat. [address] [place] [address], [address]. tel:[phone] Offic/outpt E&m Estab Mod-hi 2 [facility], [address] [place] [address], [facility], [place] tel: [phone] [facility] Tear Med Menisc Knee-cur [address]harat. [address] [place] [address], [address]. tel:[phone] [facility], [address] [place] [address], [address], [place] tel: [phone] [facility] Tear Med Menisc Knee-cur [address] Nicholson. [address] [place] [address], [address]. tel:[phone] [facility], [address] [place] [address], [address], [place] tel: [phone] [facility] Tear Med Menisc Knee-cur [address] Nicholson. [address] [place] [address], [address]. tel:[phone] Office Visit Established Low To Moderate [facility], [address] [place] [address], [facility], [place] tel: [phone] [facility] Topical Food Dermatitis 2 No Information [facility], [address] [place] [address], [facility], [place] tel: [phone] [facility] Tear Med Menisc Knee-cur [address] Nicholson. [address] [place] [address], [address]. tel:[phone] [facility], [address] [place] [address], [facility], [place] tel: [phone] [facility] Osteoarthros Nos-l/legDerange Posterior Medial Menis [address] Nich[address] [place] [address], [address]. tel:[phone] Offic/outpt E&m Estab Mod-hi 2 [facility], [address] [place] [address], [address], [place] tel: [phone] [facility] Benign HypertensionOsteoa rthros Nos-unspecTear Meniscus Nec-curren 2 No Information Referring Provider: Bharat Hernadez, [address] [place] [address], [address]. tel:[phone] Offic/outpt E&m Estab Mod-hi 2 [facility], [address] [place] [address], [facility], [place] tel: [phone] [facility] Tear Med Menisc Knee-cur 2 Laneisma[address] Nicholson. [address] [place] [address], [facility]. tel:[phone] Office Visit New Patient Low To Moderate [facility], [address] [place] [address], [facility], [place] tel: [phone] [facility] Osteoarthros Nos-l/legTear Med Menisc Knee-cur [address]har[address]. [address] [place] [address], [facility]. tel:[phone] Office Visit Established Low To Moderate [facility], [address] [place] [address], [facility], [place] tel: [phone] [facility] Osteoarthros Nos-unspecPoplitea l Synovial Cyst 2 No Information [facility], [address] [place] [address], [address], [place] tel: [phone] [facility] Benign Hypertension 2 No Information [facility], [address] [place] [address], [facility], [place] tel: [phone] [facility] Benign Hypertension 1 No Information [facility], [address] [place] [address], [address], [place] tel: [phone] [facility] Benign Hypertension 1 No Information [facility], [address] [place] [address], [address], [place] tel: [phone] [facility] Family Hx-gi Malignancy 1 No Information Referring Provider: Vito Mills, [address] [place] [address], [id number]. tel:[phone] Family History Family Member Type Diagnosis Age At Onset No Information Payers Payer name Insurance type Covered alliance party ID Authoriza tion(s) No Information Social History Type Description Quantity Date Captured Comments Sex Female Smoking Status No Information Chief Complaint And Reason For Visit No Information History Of Present Illness Encounter Date Complaint History Of Prese nt Illness No Information Instructions Date Instruction Additional Infor mation No Information Assessments Type Assessment Date No Information
--- OUTSIDE RECORDS SUMMARY | 2024-03-16 12:24 | XMS_ITS | Clinical Summary ---
Author Organization [facility] Address [address] [place] [address] Care Team Providers Care Rn Lpn Lvn Name Role Phone Unavailable Primary Care Provider Unavailabl e Allergies Active Allergy Reactions Criticality Noted Date Comments Latex Itching Low 05/14/2023 Medications triamterene-hyd roCHLOROthiazid e (DYAZIDE) 37.5-25 mg capsule Take 1 Capsule by mouth daily in the morning. Active levothyroxine 88 mcg tablet Take 88 mcg by mouth daily in the morning. Active omeprazole (PriLOSEC) 40 mg Capsule, Delayed Release(E.C.) Take 40 mg by mouth daily. Active loratadine (CLARITIN) 10 mg tablet Take 10 mg by mouth daily. Active magnesium oxide (MAG-OX) 400 mg (241.3 mg magnesium) tablet Take 400 mg by mouth daily. Active ferrous gluconate 324 mg (38 mg iron) tablet Take 324 mg by mouth. Active CALCIUM CARBONATE-VITAM IN D3 ORAL Take by mouth. Active multivitamins-m inerals-lutein (CENTRUM SILVER) Tablet Take 1 Tablet by mouth daily. Active omega-3 fatty acids-fish oil 300-1,000 mg Capsule Take by mouth daily. Active Active Problems Problem Noted Date Diagnosed Date Acute blood loss anemia 02/19/2023 Encounters Date Type Department Care Team Description 03/03/2024 External Device Data ST[facility] ABSTRACTION Provider, Abstract 03/03/2024 External Device Data [facility] ABSTRACTION Provider, Abstract from Last 3 Months Family History Medical History Relation Name Comments No Known Problems Father Pancreatic Cancer Mother Throat Cancer Sister 1 Tongue Cancer Sister 1 No Known Problems Sister 2 No Known Problems Sister 3 Relation Name Status Comments Father Mother Sister 1 Sister 2 Alive Sister 3 Alive Social History Tobacco Use Types Packs/Day Years Used Date Smoking Tobacco: Never Smokeless Tobacco: Never Tobacco Cessation:Counseling Given: Not Answered Alcohol Use Standard Drinks/Week Comments Yes 0 (1 standard drink = 0.6 oz pur e alcohol) Socially Comments Unknown Sex and Gender Information Value Date Recorded Sex Assigned at Not on file Legal Sex Female 3:16 PM [employer] Gender Identity Not on file Sexual Orientation Not on file Last Filed Vital Signs Vital Sign Reading Time Taken Comments Blood Pressure 172/94 11/12/2023 11:05 AM CDT Pulse 55 11/12/2023 10:59 AM CDT Temperature 36.6 ??C (97.8 ??F) 11/12/2023 10:59 AM C DT Respiratory Rate 18 11/12/2023 10:59 AM CDT Oxygen Saturation 96% 11/12/2023 10:59 AM CDT Inhaled Oxygen Concentration - - Weight 108 kg (238 lb) 11/12/2023 10:59 AM CDT Height 177.8 cm (5' 10 ) 02/19/2023 10:41 AM [employer] Body Mass Index 34.15 02/19/2023 10:41 AM [employer] Plan of Treatment Upcoming Encounters Date Type Department Care Team (Late st Contact Info) Description 05/11/2024 11:45 AM CDT Office Visit [facility] [address] [place] [address] [facility] [address] [place] [address] Josh Deluca MD [address] [facility] [address] [place] [address] Health Maintenance Due Date Last Done Comments Pre-Diabetes and Diabetes Screening 1960 DTAP/TDAP/TD VACCINES (1 - Tdap) 1977 BREAST CANCER SCREENING 1998 FIT-DNA Q 3 years 2003 FIT/FOBT Q 1 year 2003 Flex Sig/CT Colonography Q 5 years 2003 PNEUMOCOCCAL VACCINE 65+ YEA RS (1 of 1 - PCV) 02/19/2008 ZOSTER VACCINE (1 of 2) 02/19/2008 OSTEOPOROSIS SCREENING 2023 INFLUENZA VACCINE (#1) 2023 3, 12/10/2021, 12/07/2020, Additional history exists COLORECTAL SCREENING 02/26/2027 02/26/2017 Colorectal Cancer Screening 02/26/2027 RSV VACCINE (60+ or ) (1 - 1-dose 75+ series) 2033 Insurance [facility] O [facility]
--- OUTSIDE RECORDS SUMMARY | 2024-03-16 12:24 | XMS_ITS | Data Portability ---
Author Organization [place] - [facility], Main Office Address [address] [place] [address] Assessment Encounter Date Assessment Date Assessment LastModified by Organization Details LastModified Time 02/17/2023 02/17/2023 I have reconciled the patient's medications post their discharge from inpatient facility. Not available 02/17/2023 14:27:54 Plan of Treatment Reminders Order Date Submit Date Provider Last Modified By Organization Details Last Modified Time Details Appointments None recorded. Lab TSH + free T4, serum 2022 023 [facility], [address], [address], [place], [address], 3 04:18:23 T3, free, serum or plasma 2022 023 [facility], [address], [address], [place], [address], 3 04:18:24 CBC w/ auto diff 2023 024 [facility], [address], [place], [address], 4 02:01:04 Referral hematologis t referral 2023 024 [facility], [address], [place], [address], 4 20:21:52 Procedures None recorded. Surgeries None recorded. Imaging MAMMO, screening, digital, bilateral 2022 023 YULI Not available 3 16:18:40 Medication Orders triamterene 37.5 mg-hydrochl orothiazide 25 mg tablet 2022 023 [facility] #98130, [address] [facility], [place], [place], [id number], 3 09:26:05 levothyroxi ne 88 mcg tablet 2022 023 [facility] #38760, [address] [facility], [place], [place], [id number], 3 09:26:05 Zepbound 2.5 mg/0.5 mL subcutaneou s pen injector 2022 023 [email or web address] #31305, [address] [facility], [place], [place], [id number], 4 15:04:17 omeprazole 40 mg capsule,del ayed release 2023 024 [facility] #13681, [address] [place] [address], [id number], 4 15:06:00 Wegovy 0.25 mg/0.5 mL subcutaneou s pen injector 2023 024 [facility] #66763, [address] [place] [address], [id number], 4 15:14:26 ferrous gluconate 324 mg (38 mg iron) tablet 2023 024 [facility] #14054, [address] [place] [address], [id number], 4 15:03:50 Patient TargetsNo targets recorded. Patient Instructions Encounter Date Encounter Id Patient Instructions Last Modified By Organization Details Last Modified Time 02/17/2023 [id number] Thank you for your visit to our office today. We would like to request that you reach out to your referring or previous provider and request that they send us a Summary of Care in electronic form, so that we may have it on file in your medical record. At your visit, we had the medical records we needed to provide you with the best possible care; however, for insurance purposes, an electronic Summary of Care is beneficial. Thank you for your assistance in obtaining this information and we look forward to providing continued care to you. Please review your medication list from the Summary of Care for this visit. If there are any differences from what you are currently taking at home, please call us to discuss. Not available 02/17/2023 14:27:54 Reason for Referral Referring Physician: Tuyet Gomez, Internal Medicine, Encounter Date: 02/17/2023 Results Created Date Observation Date Name Description Value Unit Range Abnormal Flag Note LastModifiedBy Organization Detail LastModifiedTime 01/10/20 22 01/10/2022 T3, FREE T3, free 2.9 pg/mL 2.3-4. 2 normal Not Available [facility] [address] [place], [address], 01/10/2022 12:01:13 01/10/20 22 01/10/2022 T4, FREE T4, free 1.1 NG/dL 0.8-1. 8 normal Not Available [facility] [address] [place], [address], 01/10/2022 12:01:12 01/10/20 22 01/10/2022 TSH TSH 3.70 mIU/L 0.40-4 .50 normal Not Available [facility] [address] [place], [address], 01/10/2022 12:01:11 01/10/20 22 01/10/2022 COMPR EHENS RISHABH METAB OLIC PANEL glucose 88 mg/dL 65-99 normal Fasti ng refer ence inter capri Not Available [facility] [id number] [place], [place] [address], [address], 01/10/2022 12:01:11 01/10/20 22 01/10/2022 COMPR EHENS RISHABH METAB OLIC PANEL urea nitrogen (BUN) 18 mg/dL 7-25 normal Not Available [address], [address], 01/10/2022 12:01:11 01/10/20 22 01/10/2022 COMPR EHENS RISHABH METAB OLIC PANEL creatinine 0.89 mg/dL 0.50-1 .05 normal Not Available [address], [address], 01/10/2022 12:01:11 01/10/20 22 01/10/2022 COMPR EHENS RISHABH METAB OLIC PANEL eGFR 73 mL/mi n/1.7 3m2 > or = 60 normal The eGFR is based on the CKD-E PI 2020 equat ion. To calcu late the new eGFR from a previ ous Creat inine or Cysta tin C resul t, go to https ://dianen leon.aroldo brown.rosa maria chin/maira islas s/ kdoqi /gfr% 5Fcal culat or Not Available [address], [address], 01/10/2022 12:01:11 01/10/20 22 01/10/2022 COMPR EHENS RISHABH METAB OLIC PANEL BUN/creatini ne ratio not applic able (calc ) 6-22 Not Available [address], [address], 01/10/2022 12:01:11 01/10/20 22 01/10/2022 COMPR EHENS RISHABH METAB OLIC PANEL sodium 144 mmol/ L 135-14 6 normal Not Available [address], [address], 01/10/2022 12:01:11 01/10/20 22 01/10/2022 COMPR EHENS RISHABH METAB OLIC PANEL potassium 4.2 mmol/ L 3.5-5. 3 normal Not Available [address], [address], 01/10/2022 12:01:11 01/10/20 22 01/10/2022 COMPR EHENS RISHABH METAB OLIC PANEL chloride 107 mmol/ L 98-110 normal Not Available [address], [address], 01/10/2022 12:01:11 01/10/20 22 01/10/2022 COMPR EHENS RISHABH METAB OLIC PANEL carbon dioxide 30 mmol/ L 20-32 normal Not Available [address], [address], 01/10/2022 12:01:11 01/10/20 22 01/10/2022 COMPR EHENS RISHABH METAB OLIC PANEL calcium 8.9 mg/dL 8.6-10 .4 normal Not Available [address], [address], 01/10/2022 12:01:11 01/10/20 22 01/10/2022 COMPR EHENS RISHABH METAB OLIC PANEL protein, total 5.8 g/dL 6.1-8. 1 low Not Available [address], [address], 01/10/2022 12:01:11 01/10/20 22 01/10/2022 COMPR EHENS RISHABH METAB OLIC PANEL albumin 3.8 g/dL 3.6-5. 1 normal Not Available [address], [address], 01/10/2022 12:01:11 01/10/20 22 01/10/2022 COMPR EHENS RISHABH METAB OLIC PANEL globulin 2.0 g/dL_ (calc ) 1.9-3. 7 normal Not Available [address], [address], 01/10/2022 12:01:11 01/10/20 22 01/10/2022 COMPR EHENS RISHABH METAB OLIC PANEL albumin/glob ulin ratio 1.9 (calc ) 1.0-2. 5 normal Not Available [address], [address], 01/10/2022 12:01:11 01/10/20 22 01/10/2022 COMPR EHENS RISAHBH METAB OLIC PANEL bilirubin, total 0.3 mg/dL 0.2-1. 2 normal Not Available [address], [address], 01/10/2022 12:01:11 01/10/20 22 01/10/2022 COMPR EHENS RISHABH METAB OLIC PANEL alkaline phosphatase 62 U/L 37-153 normal Not Available [address], [address], 01/10/2022 12:01:11 01/10/20 22 01/10/2022 COMPR EHENS RISHABH METAB OLIC PANEL AST 29 U/L 10-35 normal Not Available [address], [address], 01/10/2022 12:01:11 01/10/20 22 01/10/2022 COMPR EHENS RISHABH METAB OLIC PANEL ALT 27 U/L 6-29 normal Not Available [address], [address], 01/10/2022 12:01:11 06/22/19 23 06/22/2022 LIPID PANEL WITH RATIO S cholesterol, total 127 mg/dL <200 normal Not Available [address], [address], 06/22/2022 10:04:29 06/22/19 23 06/22/2022 LIPID PANEL WITH RATIO S HDL cholesterol 80 mg/dL > or = 50 normal Not Available [address] [place], [address], 06/22/2022 10:04:29 06/22/19 23 06/22/2022 LIPID PANEL WITH RATIO S triglyceride s 62 mg/dL <150 normal Not Available [address], [address], 06/22/2022 10:04:29 06/22/19 23 06/22/2022 LIPID PANEL WITH RATIO S LDL-choleste rol 33 mg/dL _(claudia c) normal Refer ence range : <100 Gal able range <100 mg/dL for prima ry preve ntion ; <70 mg/dL for patie nts with CHD or diabe tic patie nts with > or = 2 CHD risk facto rs. LDL-C is now calcu lated using the Blessing n-Hop kins calcu latio n, which is a valid ated novel dana angte r accur acy than the Fried susan equat ion in the estim ation of LDL-C . Blessing rooney SS et al. NANI. 2013; 310(1 9): 2061- 2068 (http ://ed ucati on.Qu amandaPxRadia. com/f aq/FA Q164) Not Available [address], [address], 06/22/2022 10:04:29 06/22/19 23 06/22/2022 LIPID PANEL WITH RATIO S chol/HDLC ratio 1.6 (calc ) <5.0 normal Not Available [address], [address], 06/22/2022 10:04:29 06/22/1906/22/2022 LIPID PANEL WITH RATIO S LDL/HDL ratio 0.4 (calc ) Below avera ge Risk: <2.34 Bruce ge Risk: 2.35- 4.12 Moder ate Risk: 4.13- 5.56 High Risk: >5.57 Not Available [address], [address], 06/22/2022 10:04:29 06/22/19 23 06/22/2022 LIPID PANEL WITH RATIO S non HDL cholesterol 47 mg/dL _(claudia c) <130 normal For patie nts with diabe nj plus 1 major ASCVD risk facto r, treat ing to a non-H DL-C goal of <100 mg/dL (LDL- C of <70 mg/dL ) is consi dered a thera peuti c optio n. Not Available [facility] [address] [address] [place], [address], 06/22/2022 10:04:29 06/22/1906/22/2022 COMPR EHENS RISHABH METAB OLIC PANEL glucose 93 mg/dL 65-99 normal Fasti ng refer ence inter capri Not Available [facility] [address] [address] [place], [address], 06/22/2022 10:04:30 06/22/19 23 06/22/2022 COMPR EHENS RISHABH METAB OLIC PANEL urea nitrogen (BUN) 15 mg/dL 7-25 normal Not Available [facility] [address], [address], 06/22/2022 10:04:30 06/22/19 23 06/22/2022 COMPR EHENS RISHABH METAB OLIC PANEL creatinine 0.83 mg/dL 0.50-1 .05 normal Not Available [address], [address], 06/22/2022 10:04:30 06/22/19 23 06/22/2022 COMPR EHENS RISHABH METAB OLIC PANEL eGFR 79 mL/mi n/1.7 3m2 > or = 60 normal The eGFR is based on the CKD-E PI 2020 equat ion. To calcu late the new eGFR from a previ ous Creat inine or Cysta tin C resul t, go to https ://dianne brown.rosa maira chin/maira islas s/ kdoqi /gfr% 5Fcal culat or Not Available [place] [address] [place], [address], 06/22/2022 10:04:30 06/22/19 23 06/22/2022 COMPR EHENS RISHABH METAB OLIC PANEL BUN/creatini ne ratio NOT APPLIC ABLE (calc ) 6-22 Not Available [address], [address], 06/22/2022 10:04:30 06/22/19 23 06/22/2022 COMPR EHENS RISHABH METAB OLIC PANEL sodium 143 mmol/ L 135-14 6 normal Not Available [address], [address], 06/22/2022 10:04:30 06/22/19 23 06/22/2022 COMPR EHENS RISHABH METAB OLIC PANEL potassium 4.1 mmol/ L 3.5-5. 3 normal Not Available [address], [address], 06/22/2022 10:04:30 06/22/19 23 06/22/2022 COMPR EHENS RISHABH METAB OLIC PANEL chloride 105 mmol/ L 98-110 normal Not Available [address], [address], 06/22/2022 10:04:30 06/22/19 23 06/22/2022 COMPR EHENS RISHABH METAB OLIC PANEL carbon dioxide 29 mmol/ L 20-32 normal Not Available [facility] [address], [address], 06/22/2022 10:04:30 06/22/19 23 06/22/2022 COMPR EHENS RISHABH METAB OLIC PANEL calcium 9.0 mg/dL 8.6-10 .4 normal Not Available [address], [address], 06/22/2022 10:04:30 06/22/19 23 06/22/2022 COMPR EHENS RISHABH METAB OLIC PANEL protein, total 6.4 g/dL 6.1-8. 1 normal Not Available [address], [address], 06/22/2022 10:04:30 06/22/19 23 06/22/2022 COMPR EHENS RISHABH METAB OLIC PANEL albumin 3.9 g/dL 3.6-5. 1 normal Not Available [address], [address], 06/22/2022 10:04:30 06/22/19 23 06/22/2022 COMPR EHENS RISHABH METAB OLIC PANEL globulin 2.5 g/dL_ (calc ) 1.9-3. 7 normal Not Available [address], [address], 06/22/2022 10:04:30 06/22/19 23 06/22/2022 COMPR EHENS RISHABH METAB OLIC PANEL albumin/glob ulin ratio 1.6 (calc ) 1.0-2. 5 normal Not Available [address], [address], 06/22/2022 10:04:30 06/22/19 23 06/22/2022 COMPR EHENS RISHABH METAB OLIC PANEL bilirubin, total 0.3 mg/dL 0.2-1. 2 normal Not Available [address], [address], 06/22/2022 10:04:30 06/22/19 23 06/22/2022 COMPR EHENS RISHABH METAB OLIC PANEL alkaline phosphatase 70 U/L 37-153 normal Not Available [address], [address], 06/22/2022 10:04:30 06/22/19 23 06/22/2022 COMPR EHENS RISHABH METAB OLIC PANEL AST 24 U/L 10-35 normal Not Available [facility] [address] [place], [address], 06/22/2022 10:04:30 06/22/19 23 06/22/2022 COMPR EHENS RISHABH METAB OLIC PANEL ALT 25 U/L 6-29 normal Not Available [facility] [address] [place], [address], 06/22/2022 10:04:30 06/22/19 23 06/22/2022 HEMOG LOBIN A1C hemoglobin A1C 4.8 %_of_ total _HGB <5.7 normal For the purpo se of scree zully for the prese nce of diabe nj: <5.7% Consi stent with the absen ce of diabe nj 5.7-6 .4% Consi stent with incre ased risk for diabe nj (pred iabet es) > or =6.5% Consi stent with diabe nj This assay resul t is consi stent with a decre ased risk of diabe nj. Curre ntly, no conse nsus exist s flakito myles use of hemog lobin A1c for diagn osis of diabe nj in child david. Accor ding to Ameri can Diabe nj Assoc iatio n (ADA) guide lines , hemog lobin A1c <7.0% repre sents optim al contr ol in non-p regna nt diabe tic patie nts. Diffe rent metri cs may apply to speci fic patie nt popul ation s. Stand ards of Medic al Care in Diabe nj(A DA). Not Available [facility] [address] [address], [place], [address], 06/22/2022 10:04:31 06/22/1906/22/2022 TSH TSH 1.68 mIU/L 0.40-4 .50 normal Not Available [facility] [address] [place], [address], 06/22/2022 10:04:32 06/22/19 23 06/22/2022 T4, FREE T4, free 1.1 NG/dL 0.8-1. 8 normal Not Available [address], [address], 06/22/2022 10:04:32 06/22/19 23 06/22/2022 CBC (INCL UDES DIFF/ PLT) white blood cell count 4.5 thous and/u L 3.8-10 .8 normal Not Available [address], [address], 06/22/2022 10:04:33 06/22/1906/22/2022 CBC (INCL UDES DIFF/ PLT) red blood cell count 4.12 manan on/uL 3.80-5 .10 normal Not Available [address], [address], 06/22/2022 10:04:33 06/22/19 23 06/22/2022 CBC (INCL UDES DIFF/ PLT) hemoglobin 11.5 g/dL 11.7-1 5.5 low Not Available [address], [address], 06/22/2022 10:04:33 06/22/1906/22/2022 CBC (INCL UDES DIFF/ PLT) hematocrit 37.4 % 35.0-4 5.0 normal Not Available [address], [address], 06/22/2022 10:04:33 06/22/19 23 06/22/2022 CBC (INCL UDES DIFF/ PLT) MCV 90.8 fL 80.0-1 00.0 normal Not Available [address], [address], 06/22/2022 10:04:33 06/22/19 23 06/22/2022 CBC (INCL UDES DIFF/ PLT) MCH 27.9 pg 27.0-3 3.0 normal Not Available [address], [address], 06/22/2022 10:04:33 06/22/19 23 06/22/2022 CBC (INCL UDES DIFF/ PLT) MCHC 30.7 g/dL 32.0-3 6.0 low Not Available [address], [address], 06/22/2022 10:04:33 06/22/19 23 06/22/2022 CBC (INCL UDES DIFF/ PLT) RDW 13.7 % 11.0-1 5.0 normal Not Available [address], [address], 06/22/2022 10:04:33 06/22/19 23 06/22/2022 CBC (INCL UDES DIFF/ PLT) platelet count 255 thous and/u L 140-40 0 normal Not Available [address], [address], 06/22/2022 10:04:33 06/22/19 23 06/22/2022 CBC (INCL UDES DIFF/ PLT) MPV 9.5 fL 7.5-12 .5 normal Not Available [address], [address], 06/22/2022 10:04:33 06/22/19 23 06/22/2022 CBC (INCL UDES DIFF/ PLT) absolute neutrophils 3083 cells /uL 1500-7 800 normal Not Available [facility] [address], [address], 06/22/2022 10:04:33 06/22/19 23 06/22/2022 CBC (INCL UDES DIFF/ PLT) absolute lymphocytes 954 cells /uL 850-39 00 normal Not Available [address], [address], 06/22/2022 10:04:33 06/22/19 23 06/22/2022 CBC (INCL UDES DIFF/ PLT) absolute monocytes 351 cells /uL 200-95 0 normal Not Available [facility] [address], [address], 06/22/2022 10:04:33 06/22/19 23 06/22/2022 CBC (INCL UDES DIFF/ PLT) absolute eosinophils 72 cells /uL 15-500 normal Not Available [facility] [address], [address], 06/22/2022 10:04:33 06/22/19 23 06/22/2022 CBC (INCL UDES DIFF/ PLT) absolute basophils 41 cells /uL 0-200 normal Not Available [facility] [address], [address], 06/22/2022 10:04:33 06/22/19 23 06/22/2022 CBC (INCL UDES DIFF/ PLT) neutrophils 68.5 % normal Not Available [facility] [address], [address], 06/22/2022 10:04:33 06/22/19 23 06/22/2022 CBC (INCL UDES DIFF/ PLT) lymphocytes 21.2 % normal Not Available [facility] [address], [address], 06/22/2022 10:04:33 06/22/19 23 06/22/2022 CBC (INCL UDES DIFF/ PLT) monocytes 7.8 % normal Not Available [facility] [address], [address], 06/22/2022 10:04:33 06/22/19 23 06/22/2022 CBC (INCL UDES DIFF/ PLT) eosinophils 1.6 % normal Not Available [facility] [address], [address], 06/22/2022 10:04:33 06/22/19 23 06/22/2022 CBC (INCL UDES DIFF/ PLT) basophils 0.9 % normal Not Available [address], [address], 06/22/2022 10:04:33 06/22/19 23 06/22/2022 URINA LYSIS , COMPL ETE color YELLOW yellow normal Not Available [address], [address], 06/22/2022 10:04:34 06/22/19 23 06/22/2022 URINA LYSIS , COMPL ETE appearance CLEAR clear normal Not Available [address], [address], 06/22/2022 10:04:34 06/22/19 23 06/22/2022 URINA LYSIS , COMPL ETE specific gravity 1.009 1.001- 1.035 normal Not Available [address], [address], 06/22/2022 10:04:34 06/22/19 23 06/22/2022 URINA LYSIS , COMPL ETE pH 8.0 5.0-8. 0 normal Not Available [address], [address], 06/22/2022 10:04:34 06/22/19 23 06/22/2022 URINA LYSIS , COMPL ETE glucose NEGATI VE negati ve normal Not Available [address], [address], 06/22/2022 10:04:34 06/22/19 23 06/22/2022 URINA LYSIS , COMPL ETE bilirubin NEGATI VE negati ve normal Not Available [address], [address], 06/22/2022 10:04:34 06/22/19 23 06/22/2022 URINA LYSIS , COMPL ETE ketones NEGATI VE negati ve normal Not Available [facility] [address], [address], 06/22/2022 10:04:34 06/22/19 23 06/22/2022 URINA LYSIS , COMPL ETE occult blood NEGATI VE negati ve normal Not Available [facility] [address], [address], 06/22/2022 10:04:34 06/22/19 23 06/22/2022 URINA LYSIS , COMPL ETE protein NEGATI VE negati ve normal Not Available [address], [address], 06/22/2022 10:04:34 06/22/19 23 06/22/2022 URINA LYSIS , COMPL ETE nitrite NEGATI VE negati ve normal Not Available [address], [address], 06/22/2022 10:04:34 06/22/19 23 06/22/2022 URINA LYSIS , COMPL ETE leukocyte esterase 2+ negati ve abnormal Not Available [address], [address], 06/22/2022 10:04:34 06/22/19 23 06/22/2022 URINA LYSIS , COMPL ETE WBC 0-5 /hpf < or = 5 normal Not Available [address], [address], 06/22/2022 10:04:34 06/22/19 23 06/22/2022 URINA LYSIS , COMPL ETE RBC NONE SEEN /hpf < or = 2 normal Not Available [address], [address], 06/22/2022 10:04:34 06/22/19 23 06/22/2022 URINA LYSIS , COMPL ETE squamous epithelial cells 0-5 /hpf < or = 5 Not Available [facility] [place] [address] [address], [place], [address], 06/22/2022 10:04:34 06/22/19 23 06/22/2022 URINA LYSIS , COMPL ETE bacteria FEW /hpf none seen abnormal Not Available [address], [address], 06/22/2022 10:04:34 06/22/19 23 06/22/2022 URINA LYSIS , COMPL ETE hyaline cast NONE SEEN /lpf none seen normal Not Available [address], [address], 06/22/2022 10:04:34 12/26/19 23 12/26/2022 TSH+F REE T4 TSH 2.15 mIU/L 0.40-4 .50 normal Not Available [address], [address], 12/26/2022 04:18:22 12/26/19 23 12/26/2022 TSH+F REE T4 T4, free 1.2 NG/dL 0.8-1. 8 normal Not Available [address], [address], 12/26/2022 04:18:22 12/26/19 23 12/26/2022 T3, FREE T3, free 3.1 pg/mL 2.3-4. 2 normal Not Available [address], [address], 12/26/2022 04:18:24 02/18/19 24 02/19/2023 CBC (INCL UDES DIFF/ PLT) white blood cell count 4.8 thous and/u L 3.8-10 .8 normal Not Available [address], [address], 02/19/2023 02:01:04 02/18/19 24 02/19/2023 CBC (INCL UDES DIFF/ PLT) red blood cell count 3.21 manan on/uL 3.80-5 .10 low Not Available [facility] [address], [address], 02/19/2023 02:01:04 02/18/19 24 02/19/2023 CBC (INCL UDES DIFF/ PLT) hemoglobin 8.4 g/dL 11.7-1 5.5 low Not Available [facility] [address], [address], 02/19/2023 02:01:04 02/18/1902/19/2023 CBC (INCL UDES DIFF/ PLT) hematocrit 28.4 % 35.0-4 5.0 low Not Available [facility] [address], [address], 02/19/2023 02:01:04 02/18/19 24 02/19/2023 CBC (INCL UDES DIFF/ PLT) MCV 88.5 fL 80.0-1 00.0 normal Not Available [facility] [address], [address], 02/19/2023 02:01:04 02/18/19 24 02/19/2023 CBC (INCL UDES DIFF/ PLT) MCH 26.2 pg 27.0-3 3.0 low Not Available [facility] [address], [address], 02/19/2023 02:01:04 02/18/19 24 02/19/2023 CBC (INCL UDES DIFF/ PLT) MCHC 29.6 g/dL 32.0-3 6.0 low Not Available [facility] [address], [address], 02/19/2023 02:01:04 02/18/19 24 02/19/2023 CBC (INCL UDES DIFF/ PLT) RDW 13.3 % 11.0-1 5.0 normal Not Available [address], [address], 02/19/2023 02:01:04 02/18/19 24 02/19/2023 CBC (INCL UDES DIFF/ PLT) platelet count 305 thous and/u L 140-40 0 normal Not Available [address], [address], 02/19/2023 02:01:04 02/18/19 24 02/19/2023 CBC (INCL UDES DIFF/ PLT) MPV 10.8 fL 7.5-12 .5 normal Not Available [address], [address], 02/19/2023 02:01:04 02/18/19 24 02/19/2023 CBC (INCL UDES DIFF/ PLT) absolute neutrophils 3389 cells /uL 1500-7 800 normal Not Available [address], [address], 02/19/2023 02:01:04 02/18/19 24 02/19/2023 CBC (INCL UDES DIFF/ PLT) absolute lymphocytes 845 cells /uL 850-39 00 low Not Available [address], [address], 02/19/2023 02:01:04 02/18/19 24 02/19/2023 CBC (INCL UDES DIFF/ PLT) absolute monocytes 418 cells /uL 200-95 0 normal Not Available [address], [address], 02/19/2023 02:01:04 02/18/19 24 02/19/2023 CBC (INCL UDES DIFF/ PLT) absolute eosinophils 101 cells /uL 15-500 normal Not Available [address], [address], 02/19/2023 02:01:04 02/18/19 24 02/19/2023 CBC (INCL UDES DIFF/ PLT) absolute basophils 48 cells /uL 0-200 normal Not Available [address], [address], 02/19/2023 02:01:04 02/18/19 24 02/19/2023 CBC (INCL UDES DIFF/ PLT) neutrophils 70.6 % normal Not Available [address], [address], 02/19/2023 02:01:04 02/18/19 24 02/19/2023 CBC (INCL UDES DIFF/ PLT) lymphocytes 17.6 % normal Not Available [facility] [address], [address], 02/19/2023 02:01:04 02/18/19 24 02/19/2023 CBC (INCL UDES DIFF/ PLT) monocytes 8.7 % normal Not Available [address], [address], 02/19/2023 02:01:04 02/18/19 24 02/19/2023 CBC (INCL UDES DIFF/ PLT) eosinophils 2.1 % normal Not Available [address], [address], 02/19/2023 02:01:04 02/18/1902/19/2023 CBC (INCL UDES DIFF/ PLT) basophils 1.0 % normal Not Available [address], [address], 02/19/2023 02:01:04 02/27/1902/27/2022 MRI, brain , w/o contr ast No observ ation record ed. [id number] , [place], [address], 04/10/2022 19:17:25 01/30/20 23 01/29/2023 MAMMO , cara serving, digit al, bilat eral No observ ation record ed. [email or web address] [facility] [address], [place], [address], 02/27/2023 15:28:21 02/13/19 24 11/22/2022 colon oscop y cara andrea (PROC ) No observ ation record ed. [email or web address] [facility] [address], [place], [address], 2023 18:55:59 02/13/19 24 02/13/2023 upper endos copy proce dure (EGD) (PROC ) No observ ation record ed. [email or web address] Not Available 2023 18:17:20 Result Notes None recorded. Problems Name Problem SNOMED Code Status Onset Date Resolution Date Notes Provider Name and Address Organization Details Recorded Time Benign essential hypertensi on 6534723 Active 2017 Not Available [facility] 3 19:16:01 Mixed anxiety and depressive disorder 802778222 Active 2019 Not Available [facility] 3 19:16:01 Gastroesop hageal reflux disease 702338376 Active 2017 Not Available [facility] 3 19:16:02 Dizziness 949430178 Active 2022 Not Available [facility] 3 19:16:02 Hypothyroi dism 16876292 Active 2021 VERÓNICA Fajardo null, [place] [employer] [facility] 3 14:17:14 Closed injury of head 309119509664 Active 2022 Not Available [facility] 3 19:16:02 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 2021 Not Available [facility] 3 19:16:02 Concussion with no loss of consciousn ess 42065058 Active 2022 Not Available [facility] 3 19:16:02 Fracture of forearm 92228664 Active Not Available [facility] 3 19:16:02 Closed fracture of neck of metacarpal bone 1285514 Active Not Available [facility] 3 19:16:02 Skin lesion 22590717 Active 2021 Not Available [facility] 3 19:16:02 Iron deficiency anemia 35808740 Active 2023 FRANCHESCA Goodson [address] [facility], [place], [address] , [place] 4 15:02:44 Gastro-eso phageal reflux disease with esophagiti s 580647587 Active 2023 FRANCHESCA Goodson [address] [facility], [place], [address] , [place] 4 15:03:56 Problem Notes None recorded. Procedures Surgical History Date Name Laterality Status Provider Name and Address Organization Details Recorded Time 02/27/19 18 Date of Last Colonoscopy completed Not Available [facility] 04/10/2022 19:15:03 02/27/19 18 Colonoscopy completed Not Available [facility] 04/10/2022 19:15:03 02/10/19 17 Orthopedic Surgery completed Not Available [facility] 04/10/2022 19:15:03 Cholecystectomy completed Not Available [facility] 04/10/2022 19:15:03 Tonsillectomy completed Not Available [facility] 04/10/2022 19:15:03 Orthopedic Surgery completed Not Available [facility] 04/10/2022 19:15:03 Orthopedic Surgery completed Not Available [facility] 04/10/2022 19:15:03 Appendectomy completed Not Available [facility] 04/10/2022 19:15:03 Imaging Results Imaging Date Name Status LastModified by Organiz ation Details LastModified Time 02/27/2022 MRI, brain, w/o contrast completed [id number] [place], [address], 04/10/2022 19:17:25 01/29/2023 MAMMO, screening, digital, bilateral completed [email or web address] [place], [address], 02/27/2023 15:28:21 11/22/2022 colonoscopy screening (PROC) completed [id number], [place], [address], 2023 18:55:59 02/13/2023 upper endoscopy procedure (EGD) (PROC) [place] [address] Information not available 02/14/2023 18:17:20 Procedure Notes None recorded. Medical Equipment None Reported. Allergies Allergen ID Allergen Name Allergen Category Reaction Reaction Severity Criticality Documentation Date Start Date Code Code System Note Provider Name and Address Organization Details Recorded Time 96271 Latex (substanc e) environme nt,medica tion Not available Not available Not available 04/10/2022 12797 8007 SNOMED Not Available [facility] 19:17:22 Medications Name Sig Start Date Stop Date Status Note LastModified by Organization Details LastModified Time Iron (ferrous sulfate) 325 mg (65 mg iron) tablet Take 1 tablet every day by oral route. 07/03 completed Not Available Not Available Not Available ranitidine 300 mg tablet TK 1 T PO HS active Not Available Not Available No t Available hydrocodone 5 mg-acetamin ophen 325 mg tablet 09/23 completed Not Available Not Available Not Available amlodipine 2.5 mg tablet TK 1 T PO QHS 09/03 completed Not Available Not Available Not Available peg-electro lyte solution 420 gram oral solution 03/13 completed Not Available Not Available Not Available omeprazole 40 mg capsule,del ayed release TAKE 1 CAPSULE BY MOUTH EVERY DAY active Not Available Not Available No t Available levothyroxi ne 75 mcg tablet TAKE 1 TABLET BY MOUTH EVERY DAY IN THE MORNING 07/24 completed Not Available Not Available Not Available cefadroxil 500 mg capsule TAKE 1 CAPSULE BY MOUTH 1 HOURS PRIOR TO APPOINTME NT 07/24 completed Not Available Not Available Not Available oxycodone-a cetaminophe n 5 mg-325 mg tablet 03/10 completed Not Available Not Available Not Available terbinafine HCl 250 mg tablet Take 1 tablet every day by oral route for 30 days. 03/13 completed Not Available Not Available Not Available levothyroxi ne 88 mcg tablet TAKE 1 TABLET BY MOUTH EVERY DAY 2022 active Not Available Not Available Not Avai lable potassium chloride ER 20 mEq tablet,exte nded release(par t/cryst) TAKE 1 TABLET BY MOUTH ON THURSDAYS ONLY 03/10 completed Not Available Not Available Not Available lidocaine 5 % topical patch APPLY 2 PATCHES BY TOPICAL ROUTE ONCE DAILY TO THE RIB AREA OF THE FRACTURE. MAY WEAR FOR 12 HOURS 04/02 completed Not Available Not Available Not Available sertraline 25 mg tablet Take 1 tablet every day by oral route. active Not Available Not Available No t Available triamterene 37.5 mg-hydrochl orothiazide 25 mg tablet TAKE 1 TABLET BY MOUTH EVERY DAY 2022 active Not Available Not Available Not Avai lable omeprazole 20 mg capsule,del ayed release take one tab daily 07/01 completed Not Available Not Available Not Available lisinopril 5 mg tablet TAKE 1 TABLET BY MOUTH EVERY MORNING 07/01 completed Not Available Not Available Not Available triamterene 75 mg-hydrochl orothiazide 50 mg tablet 09/19 completed Not Available Not Available Not Available sertraline 50 mg tablet TAKE 1 TABLET BY MOUTH EVERY DAY active Not Available Not Available No t Available clindamycin phosphate 1 % topical solution 03/13 completed Not Available Not Available Not Available valsartan 40 mg tablet 09/20 completed Not Available Not Available Not Available Vitamin D3 25 mcg (1,000 unit) capsule Take 1 capsule every day by oral route. 01/22 completed Not Available Not Available Not Available nitrofurant oin monohydrate /macrocryst als 100 mg capsule Take 1 capsule every 12 hours by oral route. 09/22 completed Not Available Not Available Not Available Fish Oil 07/03 completed Not Available Not Available Not Available ferrous gluconate 324 mg (38 mg iron) tablet TAKE 1 TABLET BY MOUTH DAILY active Not Available Not Available No t Available loratadine 10 mg capsule Take by oral route. 07/03 completed Not Available Not Available Not Available Shea Allergy takes daily 07/03 completed Not Available Not Available Not Available magnesium 400 mg (as magnesium oxide) capsule Take by oral route. 07/03 completed Not Available Not Available Not Available Centrum Silver Women 07/03 completed Not Available Not Available Not Available Shingrix (PF) 50 mcg/0.5 mL intramuscul ar suspension, kit 09/22 completed Not Available Not Available Not Available Wegovy 0.25 mg/0.5 mL subcutaneou s pen injector Inject 0.25 mg every week by subcutane ous route as directed. 2023 active Not Available Not Available Not Avai lable Ozempic 0.25 mg or 0.5 mg (2 mg/3 mL) subcutaneou s pen injector inject 0.25mg SQ weely x 4 weeks then increase to 0.5mg SQ weekly injection after 01/23 completed Not Available Not Available Not Available Zepbound 2.5 mg/0.5 mL subcutaneou s pen injector Inject by subcutane ous route for 28 days. 02/17 completed Not Available Not Available Not Available Vitals Date Recorded Body mass index (BMI) Body mass index (BMI) Body height Body height Oxygen saturation Oxygen saturation in Arterial blood by Pulse oximetry Oxygen saturation Oxygen saturation in Arterial blood by Pulse oximetry Heart rate Heart rate Respiratory rate Body temperature Body temperature Body weight Body weight Systolic blood pressure Diastolic blood pressure Systolic blood pressure Diastolic blood pressure Provider Name and Address Organization Details Last Updated DateTime 3 35.1 kg/m2 35 kg/m2 177.8 cm 177.8 cm 99 % 99 % 98 % 98 % 71 /min 68 /min 16 /min 97.3 [degF] 96.1 [degF] 968618. 33 g 830043. 54 g 128 mm[Hg] 80 mm[Hg] 124 mm[Hg] 78 mm[Hg] Not Available [facility] 3 19:15:36 Date Recorded Body height Body temperature Body mass index (BMI) Body weight Respiratory rate Oxygen saturation Oxygen saturation in Arterial blood by Pulse oximetry Heart rate Provider Name and Address Organization Details Last Updated DateTime 3 177.8 cm 97.8 [degF] 35.2 kg/m2 620277. 13 g 16 /min 98 % 98 % 56 /min VERÓNICA Fajardo [place] [facility] 3 14:21:07 Date Recorded Systolic blood pressure Diastolic blood pressure Provider Name and Address Organization Details Last Updated DateTime 07/24/2022 130 mm[Hg] 80 mm[Hg] FRANCHESCA Goodson [address] [facility] [facility] [address], [place], [address], [facility] 08/09/2022 22:12:31 Date Recorded Body height Body mass index (BMI) Body weight Respiratory rate Oxygen saturation Oxygen saturation in Arterial blood by Pulse oximetry Heart rate Systolic blood pressure Diastolic blood pressure Provider Name and Address Organization Details Last Updated DateTime 3 177.8 cm 35.4 kg/m2 552656. 32 g 16 /min 99 % 99 % 67 /min 138 mm[Hg] 80 mm[Hg] Jocelin Cruz Jorge [facility] 3 09:08:26 Date Recorded Body height Provider Name an d Address Organization Details Last Updated DateTime 02/17/2023 177.8 cm Jocelin Cruz Jorge [facility] 02/17/2023 14:29:47 Date Recorded Body mass index (BMI) Body weight Heart rate Respiratory rate Oxygen saturation Oxygen saturation in Arterial blood by Pulse oximetry Systolic blood pressure Diastolic blood pressure Provider Name and Address Organization Details Last Updated DateTime 4 34.6 kg/m2 247875. 76 g 64 /min 16 /min 99 % 99 % 110 mm[Hg] 70 mm[Hg] FRANCHESCA Goodson [address] [facility] [address], [place], [address], [facility] 4 15:04:33 Social History Question Answer Notes LastModified by Organizat ion Details LastModified Time Tobacco Smoking Status Never Smoker JANY Pratt, [facility] 01/23/2023 09:01:36 What Is Your Level Of Alcohol Consumption? Occasional [id number] Information not available 04/10/2022 What Is Your Level Of Caffeine Consumption? Moderate [id number] Information not available 04/10/2022 How Much Tobacco Do You Chew? None [id number] Information not available 04/10/2022 In The 14 Days Before Symptom Onset, Have You Had Close Contact With A Laboratory-confir med COVID-19 While That Case Was Ill? No Information not available 01/23/2023 In The 14 Days Before Symptom Onset, Have You Had Close Contact With A Person Who Is Under Investigation For COVID-19 While That Person Was Ill? No Information not available 01/23/2023 Are You Currently Employed? No Information not available 01/23/2023 What Type Of Diet Are You Following? REGULAR [id number] Information not available 04/10/2022 Do You Or Have You Ever Used E-cigarettes Or Vape? Never Used Electronic Cigarettes Information not available 01/23/2023 What Is Your Occupation? Retired Information not available 01/23/2023 Have There Been Any Changes To Your Family Or Social Situation? No Information no t available 01/23/2023 Do You Use Insect Repellent Routinely? No Information not available 01/23/2023 What Was The Date Of Your Most Recent Tobacco Screening? 07/20/2020 Information not available 01/23/2023 What Is Your Relationship Status? Single [id number] Information not available 04/10/2022 Do You Use Your Seat Belt Or Car Seat Routinely? Yes Information not available 01/23/2023 Do You Have Smoke And Carbon Monoxide Detectors In Your Home? Yes Information not available 01/23/2023 Do You Or Have You Ever Used Smokeless Tobacco? Never Used Smokeless Tobacco [id number] Information not available 04/10/2022 How Much Tobacco Do You Smoke? No [id number] Information not available 04/10/2022 Do You Use Any Illicit Or Recreational Drugs? No Information not available 01/23/2023 Do You Use Sunscreen Routinely? Yes Information not available 01/23/2023 Have You Recently Traveled Abroad? No Information not available 01/23/2023 Do You Have Any Dietary Restrictions? No Information not available 01/23/2023 Do You Or Have You Ever Used Any Other Forms Of Tobacco Or Nicotine? No Information not available 01/23/2023 Sex: Unknown Functional Status Question Answer Note LastModified by Organizat ion Details LastModified Time What is your exercise level? Moderate 4 times weekly [id number] Information not available 04/10/2022 Mental Status None recorded. Family History Relationship Description Onset Age of this Age Resolved Age Notes LastModified by Organization Details LastModified Time Mother Malignant tumor of pancreas [id number] Not available 04/10/2022 19:15:04 Sister Malignant tumor of neck [id number].104 [id number] Not available 04/10/2022 19:15:04 Sister Tongue carcinoma [id number] Not available 04/10/2022 19:15:04 Maternal Grandmother Malignant tumor of colon [id number] [id number] Not available 04/10/2022 19:15:04 Maternal Grandfather Malignant tumor of lung [id number] Not available 04/10/2022 19:15:04 Medical History Condition Response EYE PROBLEMS Y OSTEOPOROSIS Y HEARTBURN / REFLUX Y Gynecological History Statement/Question Response Abnormal Pap N Date of Last Mammogram 04/14/2020 Date of Last Colonoscopy 02/27/2017 Date of LMP Sexually Active? N Menses Monthly N Date of Last Pap 01/10/2020 Current Control Method Menopause Obstetrics History GPAL:G 0 P 0 0 0 0 Immunizations Vaccine Type Date Status Note Provider Nam e and Address Organization Details Recorded Time COVID-19, mRNA, LNP-S, PF, 30 mcg/0.3 mL dose 0 completed Not Available [facility] 04/10/2022 19:17:18 Influenza, split virus, quadrivalent, PF 2 completed Not Available [facility] 04/10/2022 19:17:19 Influenza, split virus, quadrivalent, PF 0 completed Not Available [facility] 04/10/2022 19:17:19 Influenza, split virus, quadrivalent, PF 9 completed Not Available [facility] 04/10/2022 19:17:19 Influenza, split virus, quadrivalent, PF 8 completed Not Available [facility] 04/10/2022 19:17:19 Influenza, split virus, quadrivalent, PF 8 completed Not Available [facility] 04/10/2022 19:17:19 Influenza, split virus, quadrivalent, PF 1 completed Not Available [facility] 04/10/2022 19:17:19 influenza, unspecified formulation 3 completed JANY Pratt, [place] [facility] 12/05/2022 12:34:16 Past Encounters Encounter ID Performer Location Encounter Start Date Encounter Closed Date Diagnosis/Indication Diagnosis SNOMED-CT Code Diagnosis ICD10 Code Diagnosis Note [id number] [facility] [address] [place] [address] 05/24/2020 00:00:00 06/09/2020 17:06:03 [id number] [facility] [address] [place] [address] 07/20/2020 00:00:00 08/10/2020 00:15:27 [id number] [facility] [address] [place] [address] 12/07/2020 00:00:00 12/07/2020 22:42:42 [id number] [facility] [address] [place] [address] 01/17/2021 00:00:00 02/05/2021 20:15:32 [id number] [facility] [address] [place] [address] 07/25/2021 00:00:00 08/09/2021 14:24:29 [id number] [facility] [address] [place] [address] 12/10/2021 00:00:00 12/10/2021 12:02:48 [id number] [facility] [address] [place] [address] 01/23/2022 00:00:00 02/07/2022 10:35:12 [id number] [facility] [address] [place] [address] 02/26/2022 00:00:00 03/12/2022 21:26:39 [id number] FRANCHESCA Goodson [facility] [address] [address] 07/24/2022 14:00:52 07/24/2022 14:59:29 Hypothyroidism 26881541 E03.9 on supplement and labs are stable. repeat in dec. Gastroesop hageal reflux disease 636208569 K21.9 stable. Mixed anxi ety and depressive disorder 273328033 F41.8 stable off medication s. no acute c/o , feeling stable. Benign ess ential hypertension 1018847 I10 stable on maxzide 37.5mg /hctz 25mg daily. Long-term drug therapy 305590775 Z79.451 [id number] FRANCHESCA Goodson [facility] [address], [address] [place] [place] [address] 01/23/2023 09:00:37 01/23/2023 09:31:49 Hypothyroidism 55869050 E03.9 on supplement and labs are stable. Gastroesop hageal reflux disease 047749428 K21.9 stable. Mixed anxi ety and depressive disorder 821212330 F41.8 stable off medication s. no acute c/o , feeling stable. Benign ess ential hypertension 9519435 I10 stable on maxzide 37.5mg /hctz 25mg daily. refilled. Long-term drug therapy 596844978 Z79.899 labs reviewed, [facility] Screening mammography 24 609936 Z12.31 screening mammogram due Body mass index 30+ - obesity 222662016 Z68.35 pt interested in trial of zepbound therapy if insurance will authorize. Adult heal th examination 782165169 Z00.01 well exam completed [id number] FRANCHESCA Goodson [facility] [address] [place] [address] 02/17/2023 14:27:41 02/17/2023 15:42:10 Iron deficiency anemia 98757444 D50.9 start ferrous gluconate 324mg daily and repeat CBC and referral to Hematology . Gastro-eso phageal reflux disease with esophagitis 158414259 K21.00 refill PPI therapy to continue. Body mass index 30+ - obesity 160652631 Z68.35 pt interested in wegovy , zepbound was denied. Health Concerns Section Related Observation LastModified by Organization Detai ls LastModified Time None Recorded Concern Status LastModified by Organization Details LastModified Time None Recorded Advance Directives Directive None Recorded Payers Encounter Date Sequence Insurance Name Policy Number Policy Jennings Covered Member ID Jennings Member ID Guarantor Name 07/24/2022 1 [facility] [id number] Chelsey Boyle [id number] Chelsey Boyle 01/23/2023 1 [facility] [place] [id number] Chelsey Boyle [id number] Chelsey Boyle 02/17/2023 1 [employer] (MEDICARE REPLACEMENT PPO) [id number] Chelsey Boyle [id number] Chelsey Boyle Notes Date Note Type Note Provider Name and Address Organization Details Recorded Time 022 text/ht ml Anxiety/DepressionReported bypatient.Quality:doesnt matter time of day. Severity:denies suicidal ideations; able to maintain relationships; does not interfere with activities of daily living Duration:symptoms lasting over 2 weeks Onset/Timing:still present Context:no major life stressors Modifying Factors:medications as directed Associated Symptoms:denies homicidal ideations; no significant weight gain; no significant weight loss; no visual/auditory hallucinations; no delusions; no shortness of breath; mood good; no anxiety; no crying spells; no panic; no isolation; sleeping well; appetite good; energy good; no apathy; maintaining functionalityHypertensionReported bypatient.Duration:has noted for years Onset/Timing:better Alleviating Factors:medication Self Care:under emotional stress Associated Symptoms:no palpitations; no decline in exercise capacity; no snoring;shortness of breath;fatigue Not Available [facility] [employer] [facility] 02/07/2022 10:35:12 023 text/ht ml DizzinessReported bypatient.Quality:unsteadiness Severity:some effect on daily activities;avoiding exercise Duration:intermittent episodes lasting:; lasts <5 minutes Onset/Timing:actual date of onset: (01-27-22) Context:non-smoker Modifying Factors:going from sit to stand; change in position; rapid movements Alleviating factors:holding still Aggravating factors:exercise; bending/stooping; moving head; positional change Associated Symptoms:no double vision; no dysphagia; no slurred speech; no blurred vision; no vision changes; no foggy vision; no blindness; no spots in field of vision; no ringing in the ears;eye pain(from head injury, hit bathtub) Prior TestsCT scan temporal bones; ct head/facial showed soft tissue swelling/hemorrhage contusionGeneric HPI TemplateReported bypatient.Notes:f/u post fall, striking bathtub with frontal region of face/head, had massive bruising for a month, just now improving. dizziness continues and heart rate does increased with exercise. Not Available [facility] [employer] [facility] 03/12/2022 21:26:39 023 text/ht ml Anxiety/DepressionReported bypatient.Severity:denies suicidal ideations; able to maintain relationships; does not interfere with activities of daily living Duration:symptoms lasting over 2 weeks Onset/Timing:stable Context:no major life stressors Associated Symptoms:denies homicidal ideations; no significant weight gain; no significant weight loss; no visual/auditory hallucinations; no delusions; no shortness of breathHypertensionReported bypatient.Duration:has noted for years Onset/Timing:better Alleviating Factors:medication Associated Symptoms:no shortness of breath; no fatigue; no palpitations; no decline in exercise capacity; no snoringHypothyroidismReported bypatient.Quality:not changing Duration:constant Onset/Timing:gone now Context/Risk:normal thyroid levels; no history of head or neck radiation during childhood; no history of thyroid disease; no history of hyperthyroidism; no excess iron exposure;history of hypothyroidism Modifying Factors:medication Exercisegets exercise Associated Symptoms:no cold intolerance; no heat intolerance; no weight loss; no weight gain; no double vision; no dry eyes; no hoarseness; no difficulty swallowing; no neck masses; no deepening of the voice; no fast heart rate; no increased blood pressure; no palpitations; no chest pain; no chest tightess or pressure; no constipation; no diarrhea; no vomiting; no decreased appetite; no loose stools; no irregular menstrual periods; no excessive sweating; no joint pain; no numbness; no tingling of the hands or feet; no dry skin; no tremor; no nervousness; no anxiety; no depression; no fatigue; no sleep difficulties; no skin changes; no hair changes FRANCHESCA Goodson [address] [facility] [employer] [address] [address], [place], [address], [facility] 08/09/2022 22:14:51 023 text/ht ml Anxiety/DepressionReported bypatient.Quality:doesnt matter Severity:denies suicidal ideations; able to maintain relationships;interference with sleep Duration:symptoms lasting over 2 weeks Onset/Timing:still present Context:no major life stressors Associated Symptoms:denies homicidal ideations; no significant weight gain; no significant weight loss; no visual/auditory hallucinations; no delusions; no shortness of breathHypertensionReported bypatient.Duration:has noted for years Onset/Timing:better Alleviating Factors:medication Associated Symptoms:no shortness of breath; no fatigue; no palpitations; no decline in exercise capacity; no snoringHypothyroidismReported bypatient.Quality:not changing Duration:constant Onset/Timing:still present Context/Risk:normal thyroid levels; no history of head or neck radiation during childhood; no history of thyroid disease; no history of hypothyroidism; no history of hyperthyroidism; no excess iron exposure Modifying Factors:medication Exercisegets exercise Associated Symptoms:no cold intolerance; no heat intolerance; no weight loss; no weight gain; no double vision; no dry eyes; no hoarseness; no difficulty swallowing; no neck masses; no deepening of the voice; no fast heart rate; no increased blood pressure; no palpitations; no chest pain; no chest tightess or pressure; no constipation; no diarrhea; no vomiting; no decreased appetite; no loose stools; no irregular menstrual periods; no excessive sweating; no joint pain; no numbness; no tingling of the hands or feet; no dry skin; no tremor; no nervousness; no anxiety; no depression; no fatigue; no sleep difficulties; no skin changes; no hair changes wellness FRANCHESCA Goodson [address], [place], [address], [facility] 02/06/2023 15:40:54 024 text/ht ml AnemiaReported bypatient.Severity:Microcytic (MCV<80) Timing:sudden Associated Symptoms:shortness of breath;shortness of breath during exertion Prior Tests:lower endoscopy; Upper endoscopy; fecal occult bloodNotes:anemia found in hospital, Hemoglobin was down to 7.1. June 2022 she was at high 11 range. no bleeding found on scopes but reflux esophagitis and hiatal hernia. FRANCHESCA Goodson [address], [facility] [address], [place], [address], [facility] 2023 10:35:55 OBGyn Episode No OBEpisode recorded.
== END 2024-03-16 12:19 | disposition home or self-care (01) ==
LOC: ANHIMG 12:20
PROVIDERS: PCP Physician Assistant; Visit Provider Nurse Practitioner Family
DX: Z13.820 Encounter for screening for osteoporosis (principal); Z78.0 Asymptomatic menopausal state
CPT/HCPCS: 77080

== ENCOUNTER 2024-05-17 14:38 | Outpatient (CLI) | payer MEDICARE, SELFPAY ==
--- NOTE | ~2024-05-17 | MM_ITS ---
EXAMINATION: MM screening alberto BI w ania HISTORY: Screening TECHNIQUE: Craniocaudal and mediolateral oblique 3-D tomosynthesis images were obtained and synthetic 2-D images were generated. CAD analysis was submitted and interpreted. COMPARISON: No prior mammogram is available for comparison at this institution. BREAST PARENCHYMAL COMPOSITION: There are scattered areas of fibroglandular density. FINDINGS: There is no evidence of suspicious mass, calcification, or architectural distortion to sugg est malignancy in either breast. There has been no suspicious interval change. IMPRESSION: 1. No mammographic evidence of malignancy. 2. Recommend routine screening mammography in one year. BI-RADS Category 1: Negative Reviewed, dictated and finalized at location A.
--- OUTSIDE RECORDS SUMMARY | 2024-05-17 16:49 | XMS_ITS | Data Portability ---
[facility] Organization [facility] Address [address] [place] [address] Care Team Providers Care Telesales Consultant Name Role Phone TUYET GOMEZ Primary Care Provider Unavailab le Assessment No assessment recorded. Plan of Treatment Reminders Order Date Submit Date Provider Last Modified By Organization Details Last Modified Time Details Appointments ANNUAL 30 2024 01:00P M FRANCHESCA Goodson Not available Not available Not available Lab HbA1c (hemoglob in A1c), blood 2023 024 Infer [facility], [address], [place], [address], 12/10/2023 09:51:24 lipid panel, serum 2023 024 [facility], [facility], [address], [place], [address], 12/10/2023 09:51:24 hepatic function panel, serum 2023 024 Infer [facility], [address], [place], [address], 12/10/2023 09:51:24 BMP, serum or plasma 2023 024 Infer [facility], [address], [place], [address], 12/10/2023 09:51:24 TSH + free T4, serum 2023 024 [facility], [facility], [address], [address], [place], [address], 12/10/2023 09:51:24 hepatic function panel, serum 2023 024 [facility], [address], [address], [place], [address], 08/26/2023 12:27:10 BMP, serum or plasma 2023 024 [facility], [address], [address], [place], [address], 08/26/2023 12:27:26 vitamin B12 + folate, serum or blood 2023 024 [facility], [address], [address], [place], [address], 08/26/2023 12:27:31 fecal fat, qualitati ve, stool 2023 024 [facility], [address], [address], [place], [address], 08/25/2023 16:30:08 amylase + lipase, serum 2023 024 [facility] [employer] [facility], [address], [address], [place], [address], 08/26/2023 12:26:48 magnesium , serum or plasma 2023 024 [facility], [address], [address], [place], [address], 08/26/2023 12:26:23 iron + TIBC + ferritin, serum 2023 024 [facility] [employer] [facility], [address], [address], [place], [address], 08/26/2023 12:26:04 CBC w/ auto diff 2023 024 [facility], [address], [address], [place], [address], 08/26/2023 12:27:05 Referral gynecolog ist referral - Please schedule patient with Haydee Walden NP if option. 2023 024 YULI Koroma MD, [address], [place], [address], 12/04/2023 14:49:03 podiatris t referral 2023 024 [facility] Adiel Cote Jr DPM, [address], [address], [place], [address], 08/26/2023 12:23:47 Procedures None recorded. Surgeries None recorded. Imaging US, abdomen 2023 024 [facility], [address], [address], [place], [address], 08/26/2023 10:08:41 holter monitor 2023 024 [facility], [address] [place] [address] [address], [place], [address], 09/02/2023 12:02:46 Medication Orders Cholestyr amine Light 4 gram oral powder 2023 024 [id number], [address], [place], [place], [id number], 08/19/2023 17:42:07 Patient TargetsNo targets recorded. Patient InstructionsNo instructions recorded. Reason for Referral Steward/Stewardess Deck Referral for Bila teral ankle joint pain Referring Physician: Tuyet Gomez, Internal Medicine, Encounter Date: 08/19/2023 Safekeeping Clerk Referral for Po stmenopausal state patient is postmenopausal in need of completed well woman exam including pap smear Please schedule patient with Haydee Walden NP if option. Referring Physician: Tuyet Gomez, Internal Medicine, Encounter Date: 10/15/2023 Results Created Date Observation Date Name Description Value Unit Range Abnormal Flag Note LastModifiedBy Organization Detail LastModifiedTime 08/26/19 24 08/26/2023 US, abdom en No observ ation record ed. [facility] [address], [place], [address], 08/26/2023 19:42:01 10/31/19 24 10/30/2023 elda r monit or No observ ation record ed. [facility] [address], [place], [address], 11/03/2023 14:55:29 11/03/19 24 10/30/2023 elda r monit or No observ ation record ed. [facility] [address], [place], [address], 11/03/2023 13:23:40 02/18/19 25 01/29/2023 MAMMO , scree zully, digit al, bilat eral No observ ation record ed. BARCODE Not Available 2024 17:05:47 03/17/19 25 03/16/2024 DEXA No observ ation record ed. [email or web address] [place] [address] [address], [place], [address], 03/18/2024 00:03:45 05/18/19 25 05/17/2024 imagi ng/di agnos tic resul t No observ ation record ed. [facility] [address], [place], [address], 05/17/2024 17:18:43 Result Notes None recorded. Problems Name Problem SNOMED Code Status Onset Date Resolution Date Notes Provider Name and Address Organization Details Recorded Time Gastroesoph ageal reflux disease 323115868 Active 2023 Jocelin Cruz [facility], [place] - [facility] 16:30:50 Hypothyroid ism 57241920 Active 2023 Jocelin Cruz null, [place] - [facility] 4 16:30:56 Long-term drug therapy Active 2023 FRANCHESCA Goodson Attn: Accountin g,[address] [facility], [place], [address], [place] [facility] 4 12:33:05 Bradycardia 86811161 Active 2023 FRANCHESCA Goodson Attn: Accountin g,[address] [facility] [facility], [place], [address], [place] [facility] 4 12:54:59 Family history of malignant neoplasm of pancreas 752650643 Active 2023 FRANCHESCA Goodson Attn: Accountin g,[address] [facility], [place], [address], [place] [facility] 4 12:55:01 Iron deficiency anemia 20337381 Active 2023 FRANCHESCA Goodson Attn: Accountin g,[address] [facility] [facility], [place], [address], [place] [facility] 4 12:55:02 Bilateral ankle joint pain 2434885339140 9102 Active 2023 FRANCHESCA Goodson Attn: Accountin g,[address] [facility], [place], [address], [place] [facility] 4 12:55:04 Bilateral foot joint pain 5103352147688 9109 Active 2023 FRANCHESCA Goodson Attn: Accountin g,[address] [facility], [place], [address], [place] [facility] 4 12:55:04 Chronic diarrhea 011934179 Active 2023 FRANCHESCA Goodson Attn: Accountin g,[address] [facility] [facility], [place], [address], [place] [facility] 4 12:56:58 Blood glucose outside reference range 000926311 Active 2023 FRANCHESCA Goodson Attn: Mj cerda,[address] [facility], [place], [address], [facility] - [facility] 4 20:06:36 [facility] 83348993 Active 2023 FRANCHESCA Goodson Attn: Mj g,[address] [facility], [place], [address], [facility] - [facility] 4 20:06:51 Problem Notes None recorded. Procedures Surgical History Date Name Laterality Status Provider Name and Address Organization Details Recorded Time Appendectomy completed Makenzie Bush MA [facility] 08/19/2023 16:57:24 Arthroscopic Surgery completed Makenzie Bush MA [facility] 08/19/2023 16:57:31 Joint Replacement completed Makenzie Bush MA [facility] 08/19/2023 16:59:11 Knee Surgery completed Makenzie Bush MA [facility] 08/19/2023 16:59:17 Tonsillectomy completed Makenzie Bush MA [place] - [place] 08/19/2023 16:59:25 cholecystectomy completed FRANCHESCA Goodson Attn: Accounting,[address] [facility], [place], [address], [facility] - [facility] 10/15/2023 14:32:06 Imaging Results Imaging Date Name Status LastModified by Organiz ation Details LastModified Time 08/26/2023 US, abdomen completed [facility] [address], [place], [address], 08/26/2023 19:42:01 10/30/2023 holter monitor completed [facility] [address], [place], [address], 11/03/2023 14:55:29 10/30/2023 holter monitor completed [facility] [address], [place], [address], 11/03/2023 13:23:40 01/29/2023 MAMMO, screening, digital, bilateral completed BAR[facility] Information not available 02/19/2024 17:05:47 03/16/2024 DEXA completed [email or web address] [facility] [address], [place], [address], 03/18/2024 00:03:45 05/17/2024 imaging/diagno stic result active [facility] [address], [place], [address], 05/17/2024 17:18:43 Procedure Notes None recorded. Medical Equipment None [...] and Address Organization Details Last Updated DateTime 07/09/202 4 177.8 cm 20 /min 35.3 kg/m2 158379. 72 g 96 % 96 % 48 /min 50 /min 142 mm[Hg] 78 mm[Hg] 132 mm[Hg] 80 mm[Hg] Makenzie Bush MA [facility] 4 17:03:21 Date Recorded Systolic blood pressure Diastolic blood pressure Provider Name and Address Organization Details Last Updated DateTime 08/19/2023 132 mm[Hg] 80 mm[Hg] FRANCHESCA Goodson Attn: Accounting,[address] [place], [address], [facility] 08/19/2023 17:41:15 Date Recorded Body height Respiratory rate Body mass index (BMI) Body weight Oxygen saturation Oxygen saturation in Arterial blood by Pulse oximetry Heart rate Systolic blood pressure Diastolic blood pressure Provider Name and Address Organization Details Last Updated DateTime 4 177.8 cm 20 /min 34.3 kg/m2 600539. 86 g 97 % 97 % 56 /min 138 mm[Hg] 90 mm[Hg] Makenzie Bush MA [facility] 14:04:55 Social History Question Answer Notes LastModified by Organizat ion Details LastModified Time Tobacco Smoking Status Never Smoker Makenzie Bush MA null, [facility] 08/19/2023 16:56:25 Do You Have An Advance [...] Anxious, Or Unable To Sleep At Night)? [id number] Information not available 08/19/2023 Do You Use [...] Immunizations Vaccine Type Date Status Note Provider Berhane ibrahim and Address Organization Details Recorded Time Influenza, MDCK, quadrivalent, PF 12/04/2022 completed JANY [place], [place] [facility] 11/26/2023 16:43:38 zoster recombinant 05/04/2018 completed [place] [facility] 11/26/2023 16:43:38 zoster recombinant 07/07/2018 [place] [facility] 11/26/2023 16:43:38 COVID-19, mRNA, LNP-S, PF, 100 mcg/0.5mL dose or 50 mcg/0.25mL dose 08/23/2021 [place] [facility] 11/26/2023 16:43:38 COVID-19, mRNA, LNP-S, bivalent, PF, 50 mcg/0.5 mL or 25mcg/0.25 mL dose 08/28/2022 [place] J[place] [facility] 11/26/2023 16:43:38 COVID-19, mRNA, LNP-S, PF, ewa-sucrose, 30 mcg/0.3 mL 07/25/2023 completed JANY [place] [facility] 11/26/2023 16:43:38 Past Encounters Encounter ID Performer Location Encounter Start Date Encounter Closed Date Diagnosis/Indication Diagnosis SNOMED-CT Code Diagnosis ICD10 Code Diagnosis Note [id number] FRANCHESCA Goodson [facility] [address] [place] [address] 08/19/2023 16:22:25 09/11/2023 15:22:56 Chronic diarrhea 302867919 K52.9 With persistent diarrhea, check a fecal fat test and also trial cholestyra mine powder Family his tory of malignant neoplasm of pancreas 512490254 Z80.0 With family history of pancreatic cancer check ultrasound of the abdomen and amylase and lipase labs Iron defic iency anemia 75835066 D50.9 Patient has finding of mild anemia noted on recent labs. Check updated iron studies and CBC Long-term drug therapy 575099388 Z79.899 Check routine liver function panel, basic metabolic panel and vitamin B12 and folate. Bradycardia 46718296 R00 .1 Patient has underlying bradycardi a today with a rate of 50 beats per minute Bilateral foot joint pain 3706763506 5923628 M79.671 M79.672 Patient will be seeing Podiatry as ordered above for her foot pain. Bilateral ankle joint pain 1909037848 1832508 M25.571 M25.572 Patient has bilateral ankle joint pain and we will refer to podiatry for formal in-depth evaluation [id number] FRANCHESCA Goodson [facility] [address] [place] [address] 10/15/2023 13:52:17 10/15/2023 15:27:13 Postmenopausal state 91425171 Z78.0 Referral to gynecologi provided Chronic diarrhea 7705993 09 K52.9 Patient is having improvemen t on cholestyra mine daily use for what is suspected to be post errol dumping syndrome. Family his tory of malignant neoplasm of pancreas 288568669 Z80.0 u/s abdomen is clear . Bradycardia 64281076 R00 .1 Patient has underlying bradycardi a today with a rate of 50 beats per minute. Patient has plans for Holter monitor to complete Bilateral ankle joint pain 8507698738 1216131 M25.571 M25.572 as above Bilateral foot joint pain 4856862473 2679270 M79.[address] 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 Patient is having some improvemen t and on a treatment plan Long-term drug therapy 832651466 Z79.899 Routine liver function, metabolic panel and thyroid labs are due Iron defic iency anemia 51654376 D50.9 Iron studies have improved on ferrous gluconate supplement Cholesterol screening 27 6087934 Z13.220 Fasting lipid panel is due Blood gluc ose outside reference range 691690050 R73.09 Patient is due for updated A1c [...] Name 08/19/2023 1 [employer] (MEDICARE REPLACEMENT PPO) [id number] Chelsey Boyle [id number] Chelsey Boyle 10/15/2023 1 [employer] (MEDICARE REPLACEMENT PPO) [id number] Chelsey Boyle [id number] Chelsey Boyle Notes Date Note Type Note [...] now. colon was clear. Went on iron supplement.Kj rasmussen had 3 consecutive iron infusions with dr. [...] so painful. FRANCHESCA Goodson Attn: Accounting,[address] [place], [address], [facility] 09/09/2023 12:57:22 10/15/2023 text/html GI issues: onset [...] now. colon was clear. Went on iron supplement.Kj rasmussen had 3 consecutive iron infusions with dr. [...] foot pain FRANCHESCA Goodson Attn: Accounting,[address] [place], [address], [facility] 11/08/2023 20:07:44 OBGyn Episode No OBEpisode recorded."
--- OUTSIDE RECORDS SUMMARY | 2024-05-17 16:50 | XMS_ITS | Continuity of Care Document ---
Author Organization [facility] Address [address] [place] [id number] Phone Care Team Providers Care Steam Box Operator Name Role Phone Unavailable Unavailable Unavailable Allergies, [...] Low To Moderate Postop F/u Visit [facility] 3 Injection - Major Joint Offic/outpt E&m Estab Mod-hi 2 12 Offic/outpt E&m Estab Mod-hi 2 12 Injection - Major Joint Postop F/u Visit [facility] 2 Postop F/u Visit [facility] 2 Office Visit Established Low To Moderate Postop F/u Visit [facility] 2 Arthrosc Knee; AbrasArthrosc Knee; Abras ion A Arthros Knee; W/meniArthros Knee; W/meni sect Offic/outpt E&m Estab Mod-hi 2 12 Offic/outpt E&m Estab Mod-hi 2 12 Injection - Major Joint Office Visit New Patient Low To Moderate Office Visit Established Low To Moderate Advance Directives Directive Yes / No Effective Date File Name No Information Encounters Encounter Description Practice Location Reason(s) For Visit Diagnoses Date Provider Providers Copied on Encounter [facility], [address] [place] [address], [facility], tel: [phone] [facility] No Information 7 No Information [facility], [address] [place] [address], [address], tel: [phone] [facility] No Information 7 No Information [facility], [address] [place] [address], [address], tel: [phone] [facility] No Information 7 No Information [facility], [address] [place] [address], [address], tel: [phone] [facility] No Information 7 No Information [facility], [address] [place] [address], [address], [place] tel: [phone] [facility] No Information 6 No Information Office Visit Established [facility], [address] [place] [address], [address], [place] tel: [phone] [facility] Essential (primary) hypertensionOther specified crystal arthropathies, right knee 6 No Information Referring Provider: Delano Anne, [address] [place], [address]. tel:[phone] Office Visit Established [facility], [address] [place] [address], [address], [place] tel: [phone] [facility] Vitamin D deficiency, unspecifiedEssenti al (primary) hypertension 6 No Information Office Visit Established [facility], [address] [place] [address], [address], tel: [phone] [facility] Essential (primary) hypertensionVitami n D deficiency, unspecified 5 No Information Office Visit Established [facility], [address] [place] [address], [address], [place] tel: [phone] [facility] Benign HypertensionAllerg ic Rhinitis NosOsteoarthros Nos-unspec 5 No Information Office Visit Established Low To Moderate [facility], [address] [place] [address], [address], [place] tel: [phone] [facility] Benign HypertensionEdema 4 No Information Office Visit Established Low To Moderate [facility], [address] [place] [address], [address], [place] tel: [phone] [facility] Benign HypertensionJoint Pain-ankle 4 No Information Offic/outpt E&m Estab Mod-hi 2 [facility], [address] [place] [address], [address], [place] tel:[phone] [facility] Dietary counselBenign HypertensionJoint Pain-ankleEdema 4 No Information Office Visi Established Minor [facility], [address] [place] [address], [facility], [place] tel: [phone] [facility] Dermatitis Nos 3 Brianna Kemp. [address], [place], [id number]. tel:[phone] Offic/outpt E&m Estab Mod-hi 2 [facility], [address] [place] [address], [facility], [place] tel: [phone] [facility] Osteoarthros Nos-l/legTear Med Menisc Knee-cur 3 Lane Bharat. [address] [place] [address], [facility]. tel:[phone] Office Visit Established Low To Moderate [facility], [address] [place] [address], [facility], [place] tel: [phone] [facility] Dietary counselBenign HypertensionOsteoa rthros Nos-unspec 3 No Information [facility], [address] [place] [address], [facility], [place] tel: [phone] [facility] Osteoarthros Nos-l/legTear Med Menisc Knee-cur [address] Bharat. [address] [place] [address], [facility]. tel:[phone] Offic/outpt E&m Estab Mod-hi 2 [facility], [address] [place] [address], [address], [place] tel: [phone] [facility] Osteoarthros Nos-l/legTear Med Menisc Knee-cur [address] Bharat. [address] [place] [address], [address]. tel:[phone] Offic/outpt E&m Estab Mod-hi 2 [facility], [address] [place] [address], [facility], [place] tel: [phone] [facility] Tear Med Menisc Knee-cur [address] Bharat. [address] [place] [address], [address]. tel:[phone] [facility], [address] [place] [address], [address], [place] tel: [phone] [facility] Tear Med Menisc Knee-cur [address] Nicholson. [address] [place] [address], [address]. tel:[phone] [facility], [address] [place] [address], [address], [place] tel: [phone] [facility] Tear Med Menisc Knee-cur [address] Nicholson. [address] [place] [address], [address]. tel:[phone] Office Visit Established Low To Moderate [facility], [address] [place] [address], [facility], [place] tel: [phone] [facility] Topical Food Dermatitis 2 No Information [facility], [address] [place] [address], [facility], [place] tel: [phone] [facility] Tear Med Menisc Knee-cur [address] Nicholson. [address] [place] [address], [address]. tel:[phone] [facility], [address] [place] [address], [facility], [place] tel: [phone] [facility] Osteoarthros Nos-l/legDerange Posterior Medial Menis [address] Nicholson[address] [place] [address], [address]. tel:[phone] Offic/outpt E&m Estab Mod-hi 2 [facility], [address] [place] [address], [address], [place] tel: [phone] [facility] Benign HypertensionOsteoa rthros Nos-unspecTear Meniscus Nec-curren 2 No Information Referring Provider: Bharat Hernadez, [address] [place] [address], [address]. tel:[phone] Offic/outpt E&m Estab Mod-hi 2 [facility], [address] [place] [address], [facility], [place] tel: [phone] [facility] Tear Med Menisc Knee-cur 2 Laneisma[address] Nicholson. [address] [place] [address], [facility]. tel:[phone] Office Visit New Patient Low To Moderate [facility], [address] [place] [address], [facility], [place] tel: [phone] [facility] Osteoarthros Nos-l/legTear Med Menisc Knee-cur [address] Bharat. [address] [place] [address], [facility]. tel:[phone] Office Visit Established Low To Moderate [facility], [address] [place] [address], [facility], [place] tel: [phone] [facility] Osteoarthros Nos-unspecPoplitea l Synovial Cyst 2 No Information [facility], [address] [place] [address], [address], [place] tel: [phone] [facility] Benign Hypertension 2 No Information [facility], [address] [place] [address], [facility], [place] tel: [phone] [facility] Benign Hypertension 1 No Information [facility], [address] [place] [address], [address], [place] tel: [phone] [facility] Benign Hypertension 1 No Information [facility], [address] [place] [address], [address], [place] tel: [phone] [facility] Family Hx-gi Malignancy 1 No Information Referring Provider: Vito Mills, [address] [place] [address], [id number]. tel:[phone] Family History Family Member Type Diagnosis Age At Onset No Information Payers Payer name Insurance type Covered constitution party ID Authoriza tion(s) No Information Social History Type Description Quantity Date Captured Comments Sex Female Smoking Status No Information Chief Complaint And Reason For Visit No Information History Of Present Illness Encounter Date Complaint History Of Prese nt Illness No Information Instructions Date Instruction Additional Infor mation No Information Assessments Type Assessment Date No Information
--- OUTSIDE RECORDS SUMMARY | 2024-05-17 16:50 | XMS_ITS | Clinical Summary ---
Author Organization [facility] Bertha Hampton Address [address] [place] [address] Care Team Providers Care Social Work Manager Name Role Phone Unavailable Primary Care Provider [...] CARBONATE-VITAM IN D3 ORAL Take by mouth. Acti ve multivitamins-m inerals-lutein (CENTRUM SILVER) Tablet Take 1 Tablet by mouth daily. Active omega-3 fatty acids-fish oil 300-1,000 mg Capsule Take by mouth daily. Active SEMAGLUTIDE SUBCUT Inject 40 Units by subcutaneous injection every 7 days. Active Active Problems Problem Noted Date Diagnosed Date Acute blood loss anemia 02/19/2023 Encounters Date Type Department Care Team Description 05/11/2024 11:45 AM CDT Office Visit [facility] Oncology and Hematology - [place] [address] [place] [address] Josh Deluca MD Iron deficiency anemia, unspecified iron deficiency anemia type (Primary Dx) 04/28/2024 External Device Data STL ABSTRACTION Provider, Abstract 04/17/2024 External Device Data ST[facility] ABSTRACTION Provider, Abstract 04/16/2024 External Device Data ST[facility] ABSTRACTION Provider, Abstract 04/14/2024 External Device Data ST[facility] ABSTRACTION Provider, Abstract 04/14/2024 External Device Data ST[facility] ABSTRACTION Provider, Abstract 03/31/2024 External Device Data STL ABSTRACTION Provider, Abstract [...] on file 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 Gender Identity Not on file Sexual Orientation Not on file Last Filed Vital Signs Vital Sign Reading Time Taken Comments Blood Pressure 110/70 05/11/2024 11:44 AM CDT Pulse 58 05/11/2024 11:44 AM CDT Temperature 36.1 C (96.9 F) 05/11/2024 11:44 AM CDT Respiratory Rate 16 05/11/2024 11:44 AM CDT Oxygen Saturation 97% 05/11/2024 11:44 AM CDT Inhaled Oxygen Concentration - - Weight 105.7 kg (233 lb) 05/11/2024 11:44 AM CDT Height 177.8 cm (5' 10 ) 02/19/2023 10:41 AM 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 Body Mass Index 33.43 02/19/2023 10:41 AM 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 Plan of Treatment Upcoming Encounters Date Type Department Care Team (Late st Contact Info) Description 02/22/2025 10:00 AM 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 Office Visit [facility] Oncology and Hematology - [place] [address] [facility] [address] [place] [address] Josh Deluca MD [address] [facility] [address] [place] [address] Health Maintenance Due Date Last Done Comments Pre-Diabetes and Diabetes Screening 1960 DTAP/TDAP/TD VACCINES (1 - Tdap) 1977 BREAST CANCER SCREENING 1998 FIT-DNA Q 3 years 2003 FIT/FOBT Q 1 year 2003 Flex Sig/CT Colonography Q 5 years 2003 PNEUMOCOCCAL VACCINE 50+ YEA RS (1 of 1 - PCV) 02/19/2008 ZOSTER VACCINE (1 of 2) 02/19/2008 OSTEOPOROSIS SCREENING 2023 INFLUENZA VACCINE (#1) 2023 , 12/10/2021, 12/07/2020, Additional history exists Medicare Ad[place] ([place]) Preventative Visit/Annual Wellness Visit 02/11/2024 01/23/2023 COLORECTAL SCREENING 02/26/2027 02/26/2017 Colorectal Cancer Screening 02/26/2027 RSV VACCINE (60+ or ) (1 - 1-dose 75+ series) 2033 Insurance [employer] O [facility]
--- OUTSIDE RECORDS SUMMARY | 2024-05-17 16:50 | XMS_ITS | Data Portability ---
Author Organization [place] - [facility], Main Office Address [address] [place] [address] Assessment Encounter Date Assessment Date Assessment LastModified by Organization Details LastModified Time 02/17/2023 02/17/2023 I have reconciled the patient's medications post their discharge from inpatient facility. Not available 02/17/2023 14:27:54 Plan of Treatment Reminders Order Date Submit Date Provider Last Modified By Organization Details Last Modified Time Details Appointments None recorded. Lab CBC w/ auto diff 2023 024 [facility], [address], Devan Patel, [place], [address], 4 02:01:04 TSH + free T4, serum 2022 023 [facility], [address], Devan Patel, [place], [address], 3 04:18:23 T3, free, serum or plasma 2022 023 [facility], [address], Devan Patel, [place], [address], 3 04:18:24 Referral hematologis t referral 2023 024 YULI Deluca MD, [address], [place], [address], 4 20:21:52 Procedures None recorded. Surgeries None recorded. Imaging MAMMO, screening, digital, bilateral 2022 023 YULI Not available 3 16:18:40 Medication Orders omeprazole 40 mg capsule,del ayed release 2023 024 [facility] #[id number], [address] [facility], [place], [place], [id number], 4 15:06:00 Wegovy 0.25 mg/0.5 mL subcutaneou s pen injector 2023 024 [facility] #[id number], [address] [facility], [place], [place], [id number], 4 15:14:26 ferrous gluconate 324 mg (38 mg iron) tablet 2023 024 [facility] #59133, [address] [facility], [place], [place], [id number], 4 15:03:50 triamterene 37.5 mg-hydrochl orothiazide 25 mg tablet 2022 023 [facility] #37314, [address] [facility], [place], [place], [id number], 3 09:26:05 levothyroxi ne 88 mcg tablet 2022 023 [facility] #77000, [address] [place] [address], [id number], 3 09:26:05 Zepbound 2.5 mg/0.5 mL subcutaneou s pen injector 2022 023 [email or web address] #55992, [address] [place] [address], [id number], 4 15:04:17 Patient TargetsNo targets recorded. Patient Instructions Encounter Date Encounter Id Patient Instructions Last Modified By Organization Details Last Modified Time 02/17/2023 [id number] Thank you for your visit to our [...] 2.9 pg/mL 2.3-4. 2 normal Not Available [employer] [address] [place], [address], 01/10/2022 12:01:13 01/10/20 22 01/10/2022 T4, FREE T4, free 1.1 NG/dL 0.8-1. 8 normal Not Available [employer] [facility] [address] [place], [place] [address], [address], 01/10/2022 12:01:12 01/10/20 22 01/10/2022 TSH TSH 3.70 mIU/L 0.40-4 .50 normal Not Available [employer] [facility] [address] [place], [place] [address], [address], 01/10/2022 12:01:11 01/10/20 22 01/10/2022 COMPR EHENS RISHABH METAB OLIC PANEL glucose 88 mg/dL 65-99 normal Fasti ng refer ence inter capri Not Available [employer] [facility] [address] [place], [place] [address], [address], 01/10/2022 12:01:11 01/10/20 22 01/10/2022 COMPR EHENS RISHABH METAB OLIC PANEL urea nitrogen (BUN) 18 mg/dL 7-25 normal Not Available [address], [address], 01/10/2022 12:01:11 01/10/20 22 01/10/2022 COMPR EHENS RISHABH METAB OLIC PANEL creatinine 0.89 mg/dL 0.50-1 .05 normal Not Available [address], [address], 01/10/2022 12:01:11 01/10/20 22 01/10/2022 COMPR EHENS RISHABH METAB OLIC PANEL eGFR 73 mL/mi n/1.7 3m2 > or = 60 normal The eGFR is based on the CKD-E PI 2020 equat ion. To calcu late the new eGFR from a previ ous Creat inine or Cysta tin C resul t, go to https ://dianne brown.rosa maria chin/maira islas s/ kdoqi /gfr% 5Fcal culat or Not Available [address], [address], 01/10/2022 12:01:11 01/10/20 22 01/10/2022 COMPR EHENS RISHABH METAB OLIC PANEL BUN/creatini ne ratio not applic able (calc ) 6-22 Not Available [address], [address], 01/10/2022 12:01:11 01/10/20 22 01/10/2022 COMPR EHENS RISHABH METAB OLIC PANEL sodium 144 mmol/ L 135-14 6 normal Not Available [address], [address], 01/10/2022 12:01:11 01/10/20 22 01/10/2022 COMPR EHENS RISHABH METAB OLIC PANEL potassium 4.2 mmol/ L 3.5-5. 3 normal Not Available [address], [address], 01/10/2022 12:01:11 01/10/20 22 01/10/2022 COMPR EHENS RISHABH METAB OLIC PANEL chloride 107 mmol/ L 98-110 normal Not Available [address], [address], 01/10/2022 12:01:11 01/10/20 22 01/10/2022 COMPR EHENS RISHABH METAB OLIC PANEL carbon dioxide 30 mmol/ L 20-32 normal Not Available [address], [address], 01/10/2022 12:01:11 01/10/20 22 01/10/2022 COMPR EHENS RISHABH METAB OLIC PANEL calcium 8.9 mg/dL 8.6-10 .4 normal Not Available [address], [address], 01/10/2022 12:01:11 01/10/20 22 01/10/2022 COMPR EHENS RISHABH METAB OLIC PANEL protein, total 5.8 g/dL 6.1-8. 1 low Not Available [address], [address], 01/10/2022 12:01:11 01/10/20 22 01/10/2022 COMPR EHENS RISHABH METAB OLIC PANEL albumin 3.8 g/dL 3.6-5. 1 normal Not Available [address], [address], 01/10/2022 12:01:11 01/10/20 22 01/10/2022 COMPR EHENS RISHABH METAB OLIC PANEL globulin 2.0 g/dL_ (calc ) 1.9-3. 7 normal Not Available [address], [address], 01/10/2022 12:01:11 01/10/20 22 01/10/2022 COMPR EHENS RISHABH METAB OLIC PANEL albumin/glob ulin ratio 1.9 (calc ) 1.0-2. 5 normal Not Available [address], [address], 01/10/2022 12:01:11 01/10/20 22 01/10/2022 COMPR EHENS RISHABH METAB OLIC PANEL bilirubin, total 0.3 mg/dL 0.2-1. 2 normal Not Available [address], [address], 01/10/2022 12:01:11 01/10/20 22 01/10/2022 COMPR EHENS RISHABH METAB OLIC PANEL alkaline phosphatase 62 U/L 37-153 normal Not Available [address], [address], 01/10/2022 12:01:11 01/10/20 22 01/10/2022 COMPR EHENS RISHABH METAB OLIC PANEL AST 29 U/L 10-35 normal Not Available [address], [address], 01/10/2022 12:01:11 01/10/20 22 01/10/2022 COMPR EHENS RISHABH METAB OLIC PANEL ALT 27 U/L 6-29 normal Not Available [address], [address], 01/10/2022 12:01:11 06/22/19 23 06/22/2022 LIPID PANEL WITH RATIO S cholesterol, total 127 mg/dL <200 normal Not Available [address], [address], 06/22/2022 10:04:29 06/22/19 23 06/22/2022 LIPID PANEL WITH RATIO S HDL cholesterol 80 mg/dL > or = 50 normal Not Available [address], [place], [address], 06/22/2022 10:04:29 06/22/19 23 06/22/2022 LIPID PANEL WITH RATIO S triglyceride s 62 mg/dL <150 normal Not Available [address], [address], 06/22/2022 10:04:29 06/22/19 23 06/22/2022 LIPID PANEL [...] which is a valid ated novel dana ardon r accur acy than the Fried susan equat ion in the estim ation of LDL-C . Blessing rooney SS et al. NANI. 2013; 310(1 9): 2061- 2068 (http ://ed ucati on.Qu amandaNeteven. com/f aq/FA Q164) Not Available [address] [address] [place], [address], 06/22/2022 10:04:29 06/22/19 23 06/22/2022 LIPID PANEL WITH RATIO S chol/HDLC ratio 1.6 (calc ) <5.0 normal Not Available [address], [address], 06/22/2022 10:04:29 06/22/19 23 06/22/2022 LIPID PANEL WITH RATIO S LDL/HDL ratio 0.4 (calc ) Below avera ge Risk: <2.34 [place] ge Risk: 2.35- 4.12 Moder ate Risk: 4.13- 5.56 High Risk: >5.57 Not Available [address], [address], 06/22/2022 10:04:29 06/22/19 23 06/22/2022 LIPID PANEL WITH RATIO S non HDL cholesterol 47 mg/dL _(claudia c) <130 normal For patie nts with diabe nj plus 1 major ASCVD risk facto r, treat ing to a non-H DL-C goal of <100 mg/dL (LDL- C of <70 mg/dL ) is consi dered a thera peuti c optio n. Not Available [facility] [address] [address] [place], [address], 06/22/2022 10:04:29 06/22/19 23 06/22/2022 COMPR EHENS RISHABH METAB OLIC PANEL glucose 93 mg/dL 65-99 normal Fasti ng refer ence inter capri Not Available [facility] [address] [address] [place], [address], 06/22/2022 10:04:30 06/22/19 23 06/22/2022 COMPR EHENS RISHABH METAB OLIC PANEL urea nitrogen (BUN) 15 mg/dL 7-25 normal Not Available [facility] [address], [address], 06/22/2022 10:04:30 06/22/19 23 06/22/2022 COMPR EHENS RISHABH METAB OLIC PANEL creatinine 0.83 mg/dL 0.50-1 .05 normal Not Available [facility] [address] [address] [place], [address], 06/22/2022 10:04:30 06/22/19 23 06/22/2022 COMPR EHENS RISHABH METAB OLIC PANEL eGFR 79 mL/mi n/1.7 3m2 > or = 60 normal The eGFR is based on the CKD-E PI 2020 equat ion. To calcu late the new eGFR from a previ ous Creat inine or Cysta tin C resul t, go to https ://dianne brown.rosa maria chin/maira islas s/ kdoqi /gfr% 5Fcal culat or Not Available [address] [address] [place], [address], 06/22/2022 10:04:30 06/22/19 23 06/22/2022 COMPR EHENS RISHABH METAB OLIC PANEL BUN/creatini ne ratio NOT APPLIC ABLE (calc ) 6-22 Not Available [address], [address], 06/22/2022 10:04:30 06/22/19 23 06/22/2022 COMPR EHENS RISHABH METAB OLIC PANEL sodium 143 mmol/ L 135-14 6 normal Not Available [address], [address], 06/22/2022 10:04:30 06/22/19 23 06/22/2022 COMPR EHENS RISHABH METAB OLIC PANEL potassium 4.1 mmol/ L 3.5-5. 3 normal Not Available [address], [address], 06/22/2022 10:04:30 06/22/19 23 06/22/2022 COMPR EHENS RISHABH METAB OLIC PANEL chloride 105 mmol/ L 98-110 normal Not Available [address], [address], 06/22/2022 10:04:30 06/22/19 23 06/22/2022 COMPR EHENS RISHABH METAB OLIC PANEL carbon dioxide 29 mmol/ L 20-32 normal Not Available [facility] [address], [address], 06/22/2022 10:04:30 06/22/19 23 06/22/2022 COMPR EHENS RISHABH METAB OLIC PANEL calcium 9.0 mg/dL 8.6-10 .4 normal Not Available [address], [address], 06/22/2022 10:04:30 06/22/19 23 06/22/2022 COMPR EHENS RISHABH METAB OLIC PANEL protein, total 6.4 g/dL 6.1-8. 1 normal Not Available [address], [address], 06/22/2022 10:04:30 06/22/19 23 06/22/2022 COMPR EHENS RISHABH METAB OLIC PANEL albumin 3.9 g/dL 3.6-5. 1 normal Not Available [address], [address], 06/22/2022 10:04:30 06/22/19 23 06/22/2022 COMPR EHENS RISHABH METAB OLIC PANEL globulin 2.5 g/dL_ (calc ) 1.9-3. 7 normal Not Available [address], [address], 06/22/2022 10:04:30 06/22/19 23 06/22/2022 COMPR EHENS RISHABH METAB OLIC PANEL albumin/glob ulin ratio 1.6 (calc ) 1.0-2. 5 normal Not Available [address], [address], 06/22/2022 10:04:30 06/22/19 23 06/22/2022 COMPR EHENS RISHABH METAB OLIC PANEL bilirubin, total 0.3 mg/dL 0.2-1. 2 normal Not Available [address], [address], 06/22/2022 10:04:30 06/22/19 23 06/22/2022 COMPR EHENS RISHABH METAB OLIC PANEL alkaline phosphatase 70 U/L 37-153 normal Not Available [address], [address], 06/22/2022 10:04:30 06/22/19 23 06/22/2022 COMPR EHENS RISHABH METAB OLIC PANEL AST 24 U/L 10-35 normal Not Available [facility] [address] [place], [address], 06/22/2022 10:04:30 06/22/19 23 06/22/2022 COMPR EHENS RISHABH METAB OLIC PANEL ALT 25 U/L 6-29 normal Not Available [facility] [address] [place], [address], 06/22/2022 10:04:30 06/22/19 23 06/22/2022 HEMOG LOBIN [...] Diabe nj(A DA). Not Available [facility] [address] [place], [address], 06/22/2022 10:04:31 06/22/1906/22/2022 TSH TSH 1.68 mIU/L 0.40-4 .50 normal Not Available [facility] [address] [place], [address], 06/22/2022 10:04:32 06/22/19 23 06/22/2022 T4, FREE T4, free 1.1 NG/dL 0.8-1. 8 normal Not Available [address], [address], 06/22/2022 10:04:32 06/22/19 23 06/22/2022 CBC (INCL UDES DIFF/ PLT) white blood cell count 4.5 thous and/u L 3.8-10 .8 normal Not Available [address], [address], 06/22/2022 10:04:33 06/22/1906/22/2022 CBC (INCL UDES DIFF/ PLT) red blood cell count 4.12 manan on/uL 3.80-5 .10 normal Not Available [address], [address], 06/22/2022 10:04:33 06/22/19 23 06/22/2022 CBC (INCL UDES DIFF/ PLT) hemoglobin 11.5 g/dL 11.7-1 5.5 low Not Available [address], [address], 06/22/2022 10:04:33 06/22/19 23 06/22/2022 CBC (INCL UDES DIFF/ PLT) hematocrit 37.4 % 35.0-4 5.0 normal Not Available [address], [address], 06/22/2022 10:04:33 06/22/19 23 06/22/2022 CBC (INCL UDES DIFF/ PLT) MCV 90.8 fL 80.0-1 00.0 normal Not Available [address], [address], 06/22/2022 10:04:33 06/22/19 23 06/22/2022 CBC (INCL UDES DIFF/ PLT) MCH 27.9 pg 27.0-3 3.0 normal Not Available [address], [address], 06/22/2022 10:04:33 06/22/1906/22/2022 CBC (INCL UDES DIFF/ PLT) MCHC 30.7 g/dL 32.0-3 6.0 low Not Available [address], [address], 06/22/2022 10:04:33 06/22/19 23 06/22/2022 CBC (INCL UDES DIFF/ PLT) RDW 13.7 % 11.0-1 5.0 normal Not Available [address], [address], 06/22/2022 10:04:33 06/22/19 23 06/22/2022 CBC (INCL UDES DIFF/ PLT) platelet count 255 thous and/u L 140-40 0 normal Not Available [address], [address], 06/22/2022 10:04:33 06/22/1906/22/2022 CBC (INCL UDES DIFF/ PLT) MPV 9.5 fL 7.5-12 .5 normal Not Available [address], [address], 06/22/2022 10:04:33 06/22/1906/22/2022 CBC (INCL UDES DIFF/ PLT) absolute neutrophils 3083 cells /uL 1500-7 800 normal Not Available [facility] [address], [address], 06/22/2022 10:04:33 06/22/1906/22/2022 CBC (INCL UDES DIFF/ PLT) absolute lymphocytes 954 cells /uL 850-39 00 normal Not Available [address], [address], 06/22/2022 10:04:33 06/22/19 23 06/22/2022 CBC (INCL UDES DIFF/ PLT) absolute monocytes 351 cells /uL 200-95 0 normal Not Available [facility] [address], [address], 06/22/2022 10:04:33 06/22/19 23 06/22/2022 CBC (INCL UDES DIFF/ PLT) absolute eosinophils 72 cells /uL 15-500 normal Not Available [facility] [address], [address], 06/22/2022 10:04:33 06/22/19 23 06/22/2022 CBC (INCL UDES DIFF/ PLT) absolute basophils 41 cells /uL 0-200 normal Not Available [facility] [address], [address], 06/22/2022 10:04:33 06/22/19 23 06/22/2022 CBC (INCL UDES DIFF/ PLT) neutrophils 68.5 % normal Not Available [facility] [address], [address], 06/22/2022 10:04:33 06/22/19 23 06/22/2022 CBC (INCL UDES DIFF/ PLT) lymphocytes 21.2 % normal Not Available [facility] [address], [address], 06/22/2022 10:04:33 06/22/19 23 06/22/2022 CBC (INCL UDES DIFF/ PLT) monocytes 7.8 % normal Not Available [facility] [address], [address], 06/22/2022 10:04:33 06/22/19 23 06/22/2022 CBC (INCL UDES DIFF/ PLT) eosinophils 1.6 % normal Not Available [facility] [address], [address], 06/22/2022 10:04:33 06/22/19 23 06/22/2022 CBC (INCL UDES DIFF/ PLT) basophils 0.9 % normal Not Available [address], [address], 06/22/2022 10:04:33 06/22/19 23 06/22/2022 URINA LYSIS , COMPL ETE color YELLOW yellow normal Not Available [address], [address], 06/22/2022 10:04:34 06/22/19 23 06/22/2022 URINA LYSIS , COMPL ETE appearance CLEAR clear normal Not Available [address], [address], 06/22/2022 10:04:34 06/22/19 23 06/22/2022 URINA LYSIS , COMPL ETE specific gravity 1.009 1.001- 1.035 normal Not Available [address], [address], 06/22/2022 10:04:34 06/22/19 23 06/22/2022 URINA LYSIS , COMPL ETE pH 8.0 5.0-8. 0 normal Not Available [address], [address], 06/22/2022 10:04:34 06/22/19 23 06/22/2022 URINA LYSIS , COMPL ETE glucose NEGATI VE negati ve normal Not Available [address], [address], 06/22/2022 10:04:34 06/22/19 23 06/22/2022 URINA LYSIS , COMPL ETE bilirubin NEGATI VE negati ve normal Not Available [address], [address], 06/22/2022 10:04:34 06/22/19 23 06/22/2022 URINA LYSIS , COMPL ETE ketones NEGATI VE negati ve normal Not Available [facility] [address], [address], 06/22/2022 10:04:34 06/22/19 23 06/22/2022 URINA LYSIS , COMPL ETE occult blood NEGATI VE negati ve normal Not Available [facility] [address], [address], 06/22/2022 10:04:34 06/22/19 23 06/22/2022 URINA LYSIS , COMPL ETE protein NEGATI VE negati ve normal Not Available [facility] [address], [address], 06/22/2022 10:04:34 06/22/19 23 06/22/2022 URINA LYSIS , COMPL ETE nitrite NEGATI VE negati ve normal Not Available [address], [address], 06/22/2022 10:04:34 06/22/19 23 06/22/2022 URINA LYSIS , COMPL ETE leukocyte esterase 2+ negati ve abnormal Not Available [address], [address], 06/22/2022 10:04:34 06/22/19 23 06/22/2022 URINA LYSIS , COMPL ETE WBC 0-5 /hpf < or = 5 normal Not Available [facility] [address], [address], 06/22/2022 10:04:34 06/22/19 23 06/22/2022 URINA LYSIS , COMPL ETE RBC NONE SEEN /hpf < or = 2 normal Not Available [facility] [address], [address], 06/22/2022 10:04:34 06/22/19 23 06/22/2022 URINA LYSIS , COMPL ETE squamous epithelial cells 0-5 /hpf < or = 5 Not Available [facility] [address] [address], [place], [address], 06/22/2022 10:04:34 06/22/19 23 06/22/2022 URINA LYSIS , COMPL ETE bacteria FEW /hpf none seen abnormal Not Available [address], [address], 06/22/2022 10:04:34 06/22/19 23 06/22/2022 URINA LYSIS , COMPL ETE hyaline cast NONE SEEN /lpf none seen normal Not Available [address], [address], 06/22/2022 10:04:34 12/26/19 23 12/26/2022 TSH+F REE T4 TSH 2.15 mIU/L 0.40-4 .50 normal Not Available [address], [address], 12/26/2022 04:18:22 12/26/19 23 12/26/2022 TSH+F REE T4 T4, free 1.2 NG/dL 0.8-1. 8 normal Not Available [address], [address], 12/26/2022 04:18:22 12/26/19 23 12/26/2022 T3, FREE T3, free 3.1 pg/mL 2.3-4. 2 normal Not Available [address], [address], 12/26/2022 04:18:24 02/18/19 24 02/19/2023 CBC (INCL UDES DIFF/ PLT) white blood cell count 4.8 thous and/u L 3.8-10 .8 normal Not Available [address], [address], 02/19/2023 02:01:04 02/18/19 02/19/2023 CBC (INCL UDES DIFF/ PLT) red blood cell count 3.21 manan on/uL 3.80-5 .10 low Not Available [address], [address], 02/19/2023 02:01:04 02/18/19 24 02/19/2023 CBC (INCL UDES DIFF/ PLT) hemoglobin 8.4 g/dL 11.7-1 5.5 low Not Available [employer] [facility] [employer] [facility] [address], [address], 02/19/2023 02:01:04 02/18/1902/19/2023 CBC (INCL UDES DIFF/ PLT) hematocrit 28.4 % 35.0-4 5.0 low Not Available [employer] [facility] [address], [address], 02/19/2023 02:01:04 02/18/19 24 02/19/2023 CBC (INCL UDES DIFF/ PLT) MCV 88.5 fL 80.0-1 00.0 normal Not Available [employer] [facility] [address], [address], 02/19/2023 02:01:04 02/18/1902/19/2023 CBC (INCL UDES DIFF/ PLT) MCH 26.2 pg 27.0-3 3.0 low Not Available [employer] [facility] [address], [address], 02/19/2023 02:01:04 02/18/19 24 02/19/2023 CBC (INCL UDES DIFF/ PLT) MCHC 29.6 g/dL 32.0-3 6.0 low Not Available [employer] [facility] [address], [address], 02/19/2023 02:01:04 02/18/19 24 02/19/2023 CBC (INCL UDES DIFF/ PLT) RDW 13.3 % 11.0-1 5.0 normal Not Available [facility] [address] [address], [place], [address], 02/19/2023 02:01:04 02/18/19 24 02/19/2023 CBC (INCL UDES DIFF/ PLT) platelet count 305 thous and/u L 140-40 0 normal Not Available [address], [address], 02/19/2023 02:01:04 02/18/19 24 02/19/2023 CBC (INCL UDES DIFF/ PLT) MPV 10.8 fL 7.5-12 .5 normal Not Available [facility] [address], [address], 02/19/2023 02:01:04 02/18/19 24 02/19/2023 CBC (INCL UDES DIFF/ PLT) absolute neutrophils 3389 cells /uL 1500-7 800 normal Not Available [address], [address], 02/19/2023 02:01:04 02/18/19 24 02/19/2023 CBC (INCL UDES DIFF/ PLT) absolute lymphocytes 845 cells /uL 850-39 00 low Not Available [address], [address], 02/19/2023 02:01:04 02/18/19 24 02/19/2023 CBC (INCL UDES DIFF/ PLT) absolute monocytes 418 cells /uL 200-95 0 normal Not Available [address], [address], 02/19/2023 02:01:04 02/18/19 24 02/19/2023 CBC (INCL UDES DIFF/ PLT) absolute eosinophils 101 cells /uL 15-500 normal Not Available [address], [address], 02/19/2023 02:01:04 02/18/19 24 02/19/2023 CBC (INCL UDES DIFF/ PLT) absolute basophils 48 cells /uL 0-200 normal Not Available [address], [address], 02/19/2023 02:01:04 02/18/19 24 02/19/2023 CBC (INCL UDES DIFF/ PLT) neutrophils 70.6 % normal Not Available [address], [address], 02/19/2023 02:01:04 02/18/19 24 02/19/2023 CBC (INCL UDES DIFF/ PLT) lymphocytes 17.6 % normal Not Available [facility] [address], [address], 02/19/2023 02:01:04 02/18/19 24 02/19/2023 CBC (INCL UDES DIFF/ PLT) monocytes 8.7 % normal Not Available [address], [address], 02/19/2023 02:01:04 02/18/19 24 02/19/2023 CBC (INCL UDES DIFF/ PLT) eosinophils 2.1 % normal Not Available [address], [address], 02/19/2023 02:01:04 02/18/19 24 02/19/2023 CBC (INCL UDES DIFF/ PLT) basophils 1.0 % normal Not Available [address], [address], 02/19/2023 02:01:04 02/27/1902/27/2022 MRI, brain , w/o contr ast No observ ation record ed. [id number], [place], [address], 04/10/2022 19:17:25 01/30/20 23 01/29/2023 MAMMO , scree zully, digit al, bilat eral No observ ation record ed. [email or web address] [facility] [address], [place], [address], 02/27/2023 15:28:21 02/13/19 24 11/22/2022 colon oscop y cara andrea (PROC ) No observ ation record ed. [email or web address] [facility] [address], [place], [address], 2023 18:55:59 02/13/19 24 02/13/2023 upper endos copy proce dure (EGD) (PROC ) No observ ation record ed. [email or web address] Not Available 2023 18:17:20 Result Notes None recorded. Problems Name Problem SNOMED Code Status Onset Date Resolution Date Notes Provider Name and Address Organization Details Recorded Time Benign essential hypertensi on 2085989 Active 2017 Not Available [facility] 3 19:16:01 Mixed anxiety and depressive disorder 559243551 Active 2019 Not Available [facility] 3 19:16:01 Gastroesop hageal reflux disease 187264682 Active 2017 [facility] Available [facility] 3 19:16:02 Dizziness 004309546 Active 2022 Not Available [facility] 3 19:16:02 Hypothyroi dism 79042580 Active 2021 VERÓNICA Fajardo null, [place] - [place] [facility] 3 14:17:14 Closed injury of head 595851086168 Active 2022 Not Available [facility] 3 19:16:02 Subclinica l hypothyroi dism 48895401 Active 2021 Not Available [facility] 3 19:16:02 Concussion with no loss of consciousn ess 13758516 Active 2022 Not Available [facility] 3 19:16:02 Fracture of forearm 83643547 Active Not Available [facility] 3 19:16:02 Closed fracture of neck of metacarpal bone 8740076 Active Not Available [facility] 3 19:16:02 Skin lesion 71759390 Active 2021 Not Available [facility] 3 19:16:02 Iron deficiency anemia 76986090 Active 2023 FRANCHESCA Goodson [address], [place], [address] , [employer] 4 15:02:44 Gastro-eso phageal reflux disease with esophagiti s 382185018 Active 2023 FRANCHESCA Goodson [address], [address], [place], [address] , [employer] 4 15:03:56 Problem Notes None recorded. Procedures Surgical History Date Name Laterality Status Provider Name and Address Organization Details Recorded Time 02/27/19 18 Date of Last Colonoscopy completed Not Available [facility] 04/10/2022 19:15:03 02/27/19 18 Colonoscopy completed Not Available [facility] 04/10/2022 19:15:03 02/10/19 17 Orthopedic Surgery completed Not Available [facility] 04/10/2022 19:15:03 Cholecystectomy completed Not Available [facility] 04/10/2022 19:15:03 Tonsillectomy completed Not Available [facility] 04/10/2022 19:15:03 Orthopedic Surgery completed Not Available [facility] 04/10/2022 19:15:03 Orthopedic Surgery completed Not Available [facility] 04/10/2022 19:15:03 Appendectomy completed Not Available [facility] 04/10/2022 19:15:03 Imaging Results Imaging Date Name Status LastModified by Organiz ation Details LastModified Time 02/27/2022 MRI, brain, w/o contrast completed [id number] [place], [address], 04/10/2022 19:17:25 01/29/2023 MAMMO, screening, digital, bilateral completed [email or web address] [place], [address], 02/27/2023 15:28:21 11/22/2022 colonoscopy screening (PROC) completed [address], [place], [address], 2023 18:55:59 02/13/2023 upper endoscopy procedure (EGD) (PROC) [place] [id number] Information not available 02/14/2023 18:17:20 Procedure Notes None recorded. Medical Equipment None Reported. Allergies Allergen ID Allergen Name Allergen Category Reaction Reaction Severity Criticality Documentation Date Start Date Code Code System Note Provider Name and Address Organization Details Recorded Time 90504 Latex (substanc e) environme nt,medica tion Not available Not available Not available 04/10/2022 35158 8007 SNOMED Not Available [facility] 19:17:22 Medications Name Sig Start Date Stop [...] TAKE 1 TABLET BY MOUTH EVERY DAY 12/14/ 2023 active Not Available Not Available Not [...] Date Recorded Body mass index (BMI) Body height Oxygen saturation Oxygen saturation in Arterial blood by Pulse oximetry Heart rate Respiratory rate Body temperature Body weight Systolic blood pressure Diastolic blood pressure Provider Name and Address Organization Details Last Updated DateTime 2 35.1 kg/m2 177.8 cm 99 % 99 % 71 /min 16 /min 97.3 [degF] 389374. 33 g 128 mm[Hg] 80 mm[Hg] Not Available [facility] 3 19:15:36 Date Recorded Body mass index (BMI) Body height Oxygen saturation Oxygen saturation in Arterial blood by Pulse oximetry Heart rate Body temperature Body weight Systolic blood pressure Diastolic blood pressure Provider Name and Address Organization Details Last Updated DateTime 3 35 kg/m2 177.8 cm 98 % 98 % 68 /min 96.1 [degF] 291678. 54 g 124 mm[Hg] 78 mm[Hg] Not Available [facility] 3 19:15:36 Date Recorded Body height Body temperature Body mass index (BMI) Body weight Respiratory rate Oxygen saturation Oxygen saturation in Arterial blood by Pulse oximetry Heart rate Provider Name and Address Organization Details Last Updated DateTime 3 177.8 cm 97.8 [degF] 35.2 kg/m2 259968. 13 g 16 /min 98 % 98 % 56 /min VERÓNICA Fajardo [facility] [employer] [facility] 3 14:21:07 Date Recorded Systolic blood pressure Diastolic blood pressure Provider Name and Address Organization Details Last Updated DateTime 07/24/2022 130 mm[Hg] 80 mm[Hg] FRANCHESCA Goodson [address], [address], [place], [address], [facility] [employer] [facility] 08/09/2022 22:12:31 Date Recorded Body height Body mass index (BMI) Body weight Respiratory rate Oxygen saturation Oxygen saturation in Arterial blood by Pulse oximetry Heart rate Systolic blood pressure Diastolic blood pressure Provider Name and Address Organization Details Last Updated DateTime 3 177.8 cm 35.4 kg/m2 646943. 32 g 16 /min 99 % 99 % 67 /min 138 mm[Hg] 80 mm[Hg] VERÓNICA Fajardo [facility] [employer] [facility] 3 09:08:26 Date Recorded Body height Provider Name an d Address Organization Details Last Updated DateTime 02/17/2023 177.8 cm VERÓNICA Fajardo [facility] [employer] [facility] 02/17/2023 14:29:47 Date Recorded Body mass index (BMI) Body weight Heart rate Respiratory rate Oxygen saturation Oxygen saturation in Arterial blood by Pulse oximetry Systolic blood pressure Diastolic blood pressure Provider Name and Address Organization Details Last Updated DateTime 4 34.6 kg/m2 089078. 76 g 64 /min 16 /min 99 % 99 % 110 mm[Hg] 70 mm[Hg] FRANCHESCA Goodson [address], [address], [place], [address], [facility] [employer] 4 15:04:33 Social History Question Answer Notes LastModified by Organizat ion Details LastModified Time Tobacco Smoking Status Never Smoker JANY Pratt, [facility] [employer] [facility] 01/23/2023 09:01:36 What Is Your Level Of Alcohol Consumption? Occasional [id number] Information not available 04/10/2022 What Is Your Level Of Caffeine Consumption? Moderate MIGRATION.[id number] 2639 Information not available 04/10/2022 How Much Tobacco Do You Chew? None MIGRATION.[id number] 8175 Information not available 04/10/2022 In The 14 [...] Type Of Diet Are You Following? REGULAR MIGRATION.430302 9590 Information not available 04/10/2022 Do You Or [...] 01/23/2023 What Is Your Relationship Status? Single MIGRATION.887346 5554 Information not available 04/10/2022 Do You Use Your Seat Belt Or Car Seat Routinely? Yes Information not available 01/23/2023 Do You Have Smoke And Carbon Monoxide Detectors In Your Home? Yes Information not available 01/23/2023 Do You Or Have You Ever Used Smokeless Tobacco? Never Used Smokeless Tobacco MIGRATION.321484 4671 Information not available 04/10/2022 How Much Tobacco Do You Smoke? No MIGRATION.979353 0758 Information not available 04/10/2022 Do You Use [...] your exercise level? Moderate 4 times weekly MIGRATION.7255016 026 Information not available 04/10/2022 Mental Status None recorded. Family History Relationship Description Onset Age of this Age Resolved Age Notes LastModified by Organization Details LastModified Time Mother Malignant tumor of pancreas MIGRATION.[id number] Not available 04/10/2022 19:15:04 Sister Malignant tumor of neck MIGRATION.205 [id number] Not available 04/10/2022 19:15:04 Sister Tongue carcinoma MIGRATION.792 [id number] Not available 04/10/2022 19:15:04 Maternal Grandmother Malignant tumor of colon MIGRATION.093 [id number] Not available 04/10/2022 19:15:04 Maternal Grandfather Malignant tumor of lung MIGRATION.877 [id number] Not available 04/10/2022 19:15:04 Medical History Condition [...] mcg/0.3 mL dose 0 completed Not Available [facility] 04/10/2022 19:17:18 Influenza, split virus, quadrivalent, PF 2 completed Not Available [facility] 04/10/2022 19:17:19 Influenza, split virus, quadrivalent, PF 0 completed Not Available [facility] 04/10/2022 19:17:19 Influenza, split virus, quadrivalent, PF 9 completed Not Available [facility] 04/10/2022 19:17:19 Influenza, split virus, quadrivalent, PF 8 completed Not Available [facility] 04/10/2022 19:17:19 Influenza, split virus, quadrivalent, PF 8 completed Not Available [facility] 04/10/2022 19:17:19 Influenza, split virus, quadrivalent, PF 1 completed Not Available [facility] 04/10/2022 19:17:19 influenza, unspecified formulation 3 completed JANY Pratt, [place] [facility] [employer] [facility] 12/05/2022 12:34:16 Past Encounters Encounter ID Performer Location Encounter Start Date Encounter Closed Date Diagnosis/Indication Diagnosis SNOMED-CT Code Diagnosis ICD10 Code Diagnosis Note [id number] [facility] [address] [place] [address] 05/24/2020 00:00:00 06/09/2020 17:06:03 [id number] [facility] [address] [place] [address] 07/20/2020 00:00:00 08/10/2020 00:15:27 [id number] [facility] [address] [place] [address] 12/07/2020 00:00:00 12/07/2020 22:42:42 [id number] [facility] [address] [place] [address] 01/17/2021 00:00:00 02/05/2021 20:15:32 [id number] [facility] [address] [place] [address] 07/25/2021 00:00:00 08/09/2021 14:24:29 [id number] [facility] [address] [place] [address] 12/10/2021 00:00:00 12/10/2021 12:02:48 [id number] [facility] [address] [place] [address] 01/23/2022 00:00:00 02/07/2022 10:35:12 [id number] [facility] [address] [place] [address] 02/26/2022 00:00:00 03/12/2022 21:26:39 [id number] FRANCHESCA Goodson [facility] [address] [place] [address] 07/24/2022 14:00:52 07/24/2022 14:59:29 Hypothyroidism 28755421 E03.9 on supplement and labs are stable. repeat in dec. Gastroesop hageal reflux disease 752804815 K21.9 stable. Mixed anxi ety and depressive disorder 160734658 F41.8 stable off medication s. no acute c/o , feeling stable. Benign ess ential hypertension 3543494 I10 stable on maxzide 37.5mg /hctz 25mg daily. Long-term drug therapy 692823432 Z79.269 [id number] FRANCHESCA Goodson [facility] [address] [place] [address] 01/23/2023 09:00:37 01/23/2023 09:31:49 Hypothyroidism 86608388 E03.9 on supplement and labs are stable. Gastroesop hageal reflux disease 495427413 K21.9 stable. Mixed anxi ety and depressive disorder 699546739 F41.8 stable off medication s. no acute c/o , feeling stable. Benign ess ential hypertension 0874352 I10 stable on maxzide 37.5mg /hctz 25mg daily. refilled. Long-term drug therapy 367261012 Z79.899 labs reviewed, UTD Screening mammography 24 409098 Z12.31 screening mammogram due Body mass index 30+ - obesity 109547838 Z68.35 pt interested in trial of zepbound therapy if insurance will authorize. Adult heal th examination 934072264 Z00.01 well exam completed [id number] FRANCHESCA Goodson [facility] [address] [place] [address] 02/17/2023 14:27:41 02/17/2023 15:42:10 Iron deficiency anemia 22123214 D50.9 start ferrous gluconate 324mg daily and repeat CBC and referral to Hematology . Gastro-eso phageal reflux disease with esophagitis 667469743 K21.00 refill PPI therapy to continue. Body mass index 30+ - obesity 237320376 Z68.35 pt interested in wegovy , zepbound was denied. Health Concerns Section Related Observation LastModified by Organization Detai ls LastModified Time None Recorded Concern Status LastModified by Organization Details LastModified Time None Recorded Advance Directives Directive None Recorded Payers Encounter Date Sequence Insurance Name Policy Number Policy Jennings Covered Member ID Jennings Member ID Guarantor Name 07/24/2022 1 [place] [id number] Chelsey Boyle [id number] Chelsey Boyle 01/23/2023 1 [place] [id number] Chelsey Boyle [id number] Chelsey Boyle 02/17/2023 1 [employer] (MEDICARE REPLACEMENT PPO) [id number] Chelsey Boyle [id number] Chelsey Boyle Notes Date Note Type Note Provider Name and Address Organization Details Recorded Time 01/24/20 22 text/ht ml Anxiety/DepressionReported bypatient.Quality:doesnt matter time of [...] appetite good; energy good; no apathy; maintaining functionality HypertensionReported bypatient.Duration:has noted for years Onset/Timing:better Alleviating Factors:medication Self Care:under emotional stress Associated Symptoms:no palpitations; no decline in exercise capacity; no snoring;shortness of breath;fatigue Not Available [place] [facility] 02/07/2022 10:35:12 02/26/19 23 text/ht ml DizzinessReported bypatient.Quality:unsteadiness Severity:some effect on [...] rate does increased with exercise. Not Available [facility] 03/12/2022 21:26:39 07/25/19 23 text/ht ml Anxiety/DepressionReported bypatient.Severity:denies suicidal ideations; able [...] skin changes; no hair changes FRANCHESCA Goodson [address] [facility] [facility] [address], [place], [address], [place] [facility] 08/09/2022 22:14:51 01/24/20 23 text/ht ml Anxiety/DepressionReported bypatient.Quality:doesnt matter Severity:denies suicidal [...] changes; no hair changes wellness FRANCHESCA Goodson [address] [address], [place], [address], [employer] [facility] [employer] [facility] 02/06/2023 15:40:54 02/17/19 24 text/ht ml AnemiaReported bypatient.Severity:Microcytic (MCV<80) Timing:sudden Associated Symptoms:shortness of breath;shortness of breath during exertion Prior Tests:lower endoscopy; Upper endoscopy; fecal occult bloodNotes:anemia found in hospital, Hemoglobin was down to 7.1. June 2022 she was at high 11 range. no bleeding found on scopes but reflux esophagitis and hiatal hernia. FRANCHESCA Goodson [address] [address], [place], [address], [employer] [facility] [employer] [facility] 2023 10:35:55 OBGyn Episode No OBEpisode recorded.
== END 2024-05-17 14:39 | disposition home or self-care (01) ==
LOC: ANHIMG 14:40
PROVIDERS: PCP Physician Assistant; Visit Provider Nurse Practitioner Family
DX: Z12.31 Encounter for screening mammogram for malignant neoplasm of breast (principal)
CPT/HCPCS: 77063; 77067